=== PATIENT | female | born 1970 | race Caucasian/White ===

== ENCOUNTER 2020-12-21 11:33 | Emergency (ER) | payer BC, SELFPAY ==
[2020-12-21 11:47] VITALS: BP 149/78; PULSE 79; RESP 16; TEMP 37.1; O2SAT 97; BMI 35.7
--- NOTE | 2020-12-21 11:51 | HMH.EDUTC ---
[facility] [place] Disposition Clinical Impression: Bronchitis Sinusitis Qualifiers: Sinusitis location: unspecified location Chronicity: unspecified Qualified Code(s): J32.9 - Chronic sinusitis, unspecified Disposition: Home, Self-Care Condition on Discharge: Good Instructions: Sinusitis, Acute Bronchitis, DI for Sinusitis Additional Instructions: ? Start antibiotic today. Be sure to complete entire prescription even if feeling better ? Monitor temp. Tylenol every 4 hours as needed and / or ibuprofen every 6 hours as needed ( As long as your primary care physician has told you that it ok to take both. For fever/aches/pains ER if no less than 101 despite Tylenol or Motrin ? Humidifier/vaporizer or hot steamy shower ? Inhaler every 4-6 hours as needed like we discussed. If unsure how to use it, ask pharmacist to demonstrate how. Should help open airways and improve cough, wheezing, and shortness of breath ? Mucinex during the day for your cough and cough suppressant only at night. Be sure to drink lots of water. Insurance may not cover a prescriptions for mucinex. Might be cheaper to get 400mg tablets and take 2 tablet in the morning, mid-day and evening with lots of water. Follow up IMMEDIATELY for new or worsening of symptoms OR no noticeable improvement over the next 48-72 hours. 911 immediately for any life threatening symptoms such as chest pain or difficulty breathing Prescriptions: guaiFENesin [Mucinex 600mg tablet] 600 mg PO BID #20 tab.er.12h Transmission Status: [id number] Azithromycin [Z-Xander 250mg Tab] 250 mg PO DIRECTED #6 tab Transmission Status: Pending to [facility]/pharmacy #[id number] Referrals: PCP,No [Primary Care Provider] - As needed Time of Disposition: 11:57 Medical Decision Making - Chuck Inquiry Pt receiving controlled substance: [place] was queried for this patient: No Vital Signs: 12/21/20 11:47 Temperature 98.7 F Temperature Source Oral Pulse Rate [Right] 79 Respiratory Rate 16 Blood Pressure [Right Arm] 149/78 H Blood Pressure Mean [Right Arm] 101 Blood Pressure Source [Right Arm] Automatic Cuff Blood Pressure Position [Right Arm] Sitting 02 Sat by Pulse Oximetry 97 Oxygen Delivery Method Room Air Medical Decision Narrative: Patient state that she has taken azithromycin in the past without reactions or complications [facility] [place] HPI - General Stated complaint: sore throat Time Seen by Provider: 12/21/20 11:52 Mode of Arrival: Ambulatory Source of Information: Patient Limitations: No Limitations Description of Symptoms (Recalled from Triage Doc. by RN): pt is having sinus congestion, with green mucous. she states it has started to move into her chest. she also started having a sore throat this am due to the drainage. HEENT Symptoms (Recalled from RN notes): Yes (nasal congestion with green mucous. sore throat) Resp Symptoms (Recalled from RN notes): Yes (chest congestion) Skin Symptoms (Recalled from RN notes): No MS Symptoms (Recalled from RN notes): No Functional Status (Recalled from RN notes): na - History of Present Illness Provider Complaint: Patient states that she has been having sinus pain and pressure with pain in her teeth, State that she feels like it is trying to move into her chest area States that she is an everyday smoker and has had bronchitis several times in the past State that today she was still having pressure and her mucous had a greenish yellow color so she came in - Related Data Previous Rx's Medication Instructions Recorded Azithromycin [Z-Xander 250mg Tab] 250 mg PO DIRECTED #6 tab 12/21/20 guaiFENesin [Mucinex 600mg tablet] 600 mg PO BID #20 tab.er.12h 12/21/20 Allergies Allergy/AdvReac Type Severity Reaction Status Date / Time Penicillins Allergy Verified 12/21/20 11:53 - Worker's Comp Is this a Worker's Comp case?: No [facility] History - Hepatitis A Screen Drug use history?: No High risk sexual behaviors?: No History of sexuall
[2020-12-21 12:32] VITALS: BP 142/80; PULSE 84; RESP 14; TEMP 36.6
== END 2020-12-21 12:32 | disposition home or self-care (01) ==
PROVIDERS: Emergency Provider Nurse Practitioner
DX: J32.9 Chronic sinusitis, unspecified (principal); F17.210 Nicotine dependence, cigarettes, uncomplicated; Z88.0 Allergy status to penicillin
CPT/HCPCS: 99202; G0463

== ENCOUNTER → 2021-04-17 15:06 | Outpatient (CLI) | payer OTHER, SELFPAY ==
--- NOTE | 2021-04-17 15:11 | CA_ITS ---
APPROVED REPORT EXAM: Comprehensive 2D, Doppler, and color-flow Echocardiogram Paster Hat Lining: Manda Dee RVT Ht: 5 ft 9 in Wt: 250lbs BSA: 2.27 BP: 149/78 mmHg Indications: TACHYCARDIA 2D Dimensions LVOT 1.80 cm (M/F) 1.5-2.5 LA Volume 37.00 mL LA Volume Index 16.29 mL/m2 (M/F) 16-34 M-Mode Dimensions RVDd 2.24 cm (0.9-2.6) LA Diam 3.53 cm (1.9-4.0) LVDd 3.76 cm (3.5-5.7) Ao Diam 2.59 cm (2.0-3.7) LVDs 2.05 cm (3.5-5.7) IVSd 1.06 cm (0.6-1.1) PWd 0.99 cm (0.6-1.1) EF (Teich) 77.50% FS 45.50% EDV (Teich) 60.40 mL TAPSE 1.88 (<1.7) ESV (Teich) 13.60 mL LV Diastology E Decel Time 207.00 (160-240 msec) E/A Ratio 0.9 MED E' 8.10 (< 7 cm/sec) E'/MED E' Ratio 12.47 (>14) LAT E' 12.10 (<10 cm/sec) E/LAT E' Ratio 8.35 (>14) Aortic Valve AO Peak GR. 10.80 mmHg Mitral Valve MV E Max Guzman. 101.00 (40-130 cm/s) MV A Velocity 107.00 (40-130 cm/s) E/A Ratio 0.94 MV Decel. Time 207.00 (160-240 ms) MV PHT 61.00 ms Pulmonary Valve PV Peak Velocity 98.00 (50-150 cm/s) Tricuspid Valve TR P. Velocity 250.00 cm/s RAP Estimate 10.00 mmHg RVSP 35.00 mmHg Left Ventricle Left atrium is normal size, left ventricle is normal size, there is no concentric left ventricular hypertrophy, visually estimated ejection fraction 55% with no regional wall motion abnormality, diastolic parameters are within normal range. Right Ventricle Right atrium and right ventricle are normal size and contractility. Aortic Valve Aortic valve is grossly normal, there is no aortic stenosis or aortic insufficiency. Mitral Valve Mitral valve grossly normal, there is trace mitral regurgitation. Tricuspid Valve Tricuspid grossly normal, there is trace tricuspid regurgitation, tricuspid regurgitation jet velocity is inadequate for calculation of the right ventricular systolic pressure. Pulmonic Valve Pulmonic valve is poorly visualized. Great Vessels Aortic root is normal size. Pericardium No significant pericardial effusion noted. Conclusion 1. Normal left ventricular size, preserved left ventricular systolic function, visually estimated ejection fraction 55% with no regional wall motion abnormality, diastolic parameters are within normal range. 2. Trace mitral and tricuspid regurgitation. 3. No significant pericardial effusion noted. Electronically signed by : Maximilian Prescott, 04/17/2021 21:52:21
== END ==
LOC: RT 15:07
PROVIDERS: PCP Internal Medicine Adolescent Medicine; Visit Provider Internal Medicine Adolescent Medicine
DX: R00.0 Tachycardia, unspecified (principal)
CPT/HCPCS: 93306

== ENCOUNTER → 2021-06-13 08:13 | Outpatient (CLI) | payer OTHER, SELFPAY ==
[2021-06-13 08:40] LABS: Basophils % 0.6 % (0.1-2.0); Eosinophils # 0.1 K/mm3 (0.0-0.4); Eosinophils % 1.6 % (0.1-12.0); Hematocrit 39.5 % (37.0-47.0); Hemoglobin 13.1 g/dL (12.2-16.2); Lymphocytes # 2.6 K/mm3 (0.7-4.5); Lymphocytes % 39.5 % (10-50); Mean Corpuscular HGB Conc 33.1 g/dL (31.8-35.4); Mean Corpuscular Hemoglobin 30.6 pg (27.0-31.2); Mean Corpuscular Volume 92.4 fl (81-99); Mean Platelet Volume 7.9 fl (7.4-10.4); Monocytes # 0.3 K/mm3 (0.1-1.0); Neutrophils # 3.5 K/mm3 (1.8-7.8); Neutrophils % 54.2 % (37.0-80.0); Platelet Count 195 K/mm3 (142-424); Red Blood Count 4.27 M/mm3 (4.20-5.40); White Blood Count 6.5 K/mm3 (4.8-10.8)
[2021-06-13 09:01] LABS: Alanine Aminotransferase 49 U/L (12-78); Albumin Level 4.1 g/dl (3.5-5.0); Albumin/Globulin Ratio 1.7 (1.1-1.8); Alkaline Phosphatase 55 U/L (38-126); Anion Gap 9.5 mEq/L (5-15); Aspartate Amino Transferase 51 U/L (14-36); Bilirubin,Total 0.6 mg/dl (0.2-1.3); Blood Urea Nitrogen 10 mg/dl (7-17); Carbon Dioxide 30 mmol/L (22.0-30.0); Chloride 105 mmol/L (98-107); Estimated Glomerular Filt Rate 89 ml/min (>60); GFR (African American) 108 ML/MIN (>60); Globulin 2.4 g/dL (1.3-3.2); Glucose 219 mg/dl (74-100); Potassium 4.5 mmoL/L (3.5-5.1); Sodium 140 mmol/L (136-145); Total Protein,Serum 6.5 g/dl (6.3-8.2)
[2021-06-13 09:02] LABS: Hemoglobin A1C 6.6 % (4.0-6.0)
[2021-06-13 09:18] LABS: 25-OH Vitamin D, Total 28.7 ng/mL (30-100)
[2021-06-13 09:32] LABS: Thyroid Stimulating Hormone 0.77 uIU/mL (0.465-4.68)
[2021-06-13 09:50] LABS: Vitamin B12 468 pg/mL (239-931)
[2021-06-14 08:21] LABS: CEA 5.8 ng/mL (0.0-4.7)
== END ==
LOC: LAB 08:14
PROVIDERS: Visit Provider Internal Medicine Adolescent Medicine
DX: E11.9 Type 2 diabetes mellitus without complications (principal); E03.9 Hypothyroidism, unspecified; E55.9 Vitamin D deficiency, unspecified; E53.8 Deficiency of other specified B group vitamins; Z85.42 Personal history of malignant neoplasm of other parts of uterus
CPT/HCPCS: 36415; 80053; 82306; 82378; 82607; 83036; 84443; 85025

== ENCOUNTER 2021-06-14 09:07 | Emergency (ER) | payer OTHER, SELFPAY ==
--- NOTE | 2021-06-14 09:38 | HMH.EDUTC ---
[facility] [place] Disposition Clinical Impression: Bronchitis Sinusitis Qualifiers: Sinusitis location: unspecified location Chronicity: acute Recurrence: non-recurrent Qualified Code(s): J01.90 - Acute sinusitis, unspecified Disposition: Home, Self-Care Condition on Discharge: Good Instructions: DI for Sinusitis, DI for Acute Bronchitis Additional Instructions: Drink plenty of fluids. Take tylenol or ibuprofen for pain or fever. Take the medications as directed. Follow up with your regular doctor. GO TO THE ER FOR ANY WORSENING SYMPTOMS Quarantine until you know the results of your covid-19 test. If it is positive, the health department should call you and give you further instructions about your length of Quarantine and other thing. The cough medication (promethazine dm) will make you drowsy, so don't drive or operate heavy machinery after taking it. Prescriptions: Albuterol Sulfate [Albuterol Sulfate Hfa] 2 puffs IH Q6HP PRN 30 Days #1 hfa.aer.ad PRN Reason: Shortness Of Breath Transmission Status: Received by [id number] Promethazine/Dextromethorphan [Promethazine-Dm Syrup] 5 ml PO Q6HP PRN #240 syrup PRN Reason: Cough Transmission Status: Received by [id number] methylPREDNISolone [Medrol] 4 mg PO DIRECTED 6 Days #21 tab.ds.pk Transmission Status: Received by [id number] Azithromycin [Z-Xander 250mg Tab*] 250 mg PO UD DOSE PK #6 tab Transmission Status: Received by [id number] Referrals: Mayank Choe MD [Primary Care Provider] - Forms: Work/School Release Time of Disposition: 10:30 Medical Decision Making - Medical Records Medical records reviewed: No: I reviewed the patient's medical records. - Chuck Inquiry Pt receiving controlled substance: No Vital Signs: 06/14/21 09:43 06/14/21 10:28 Temperature 98.3 F 98.3 F Temperature Source Oral Pulse Rate 92 H Pulse Rate [Left] 98 H Respiratory Rate 16 18 Blood Pressure 133/76 Blood Pressure [Right Arm] 131/80 Blood Pressure Mean [Right Arm] 97 02 Sat by Pulse Oximetry 98 - Lab Data Lab results reviewed: Yes: I reviewed the patient's lab results. Lab Results 06/14/21 09:26: SARS-CoV-2 (PCR) Not detected, Influenza A Untype (PCR) Not detected, Influenza Type B (PCR) Not detected 06/14/21 09:49: Strep Scn Rapid Clinic Negative Orders (Tests/Meds): ORDERS Category Date Time Status Strep Screen Confirmation Stat Micro 06/14/21 09:49 Received [facility] [place] HPI - General Stated complaint: sore throat, cough, head ac, mahesh Time Seen by Provider: 06/14/21 09:38 - History of Present Illness Provider Complaint: She c/o sore throat, sinus congestion, and a cough for the past 3 days. - Related Data Previous Rx's Medication Instructions Recorded Azithromycin [Z-Xander 250mg Tab] 250 mg PO DIRECTED #6 tab 12/21/20 guaiFENesin [Mucinex 600mg tablet] 600 mg PO BID #20 tab.er.12h 12/21/20 Albuterol Sulfate [Albuterol 2 puffs IH Q6HP PRN 30 Days #1 06/14/21 Sulfate Hfa] hfa.aer.ad Azithromycin [Z-Xander 250mg Tab*] 250 mg PO UD DOSE PK #6 tab 06/14/21 Promethazine/Dextromethorphan 5 ml PO Q6HP PRN #240 syrup 06/14/21 [Promethazine-Dm Syrup] methylPREDNISolone [Medrol] 4 mg PO DIRECTED 6 Days #21 06/14/21 tab.ds.pk Allergies Allergy/AdvReac Type Severity Reaction Status Date / Time Penicillins Allergy Verified 12/21/20 11:53 [facility] [place] History - Hepatitis A Screen Attestation statement:: This patient has been screened for Hepatitis A risk factors. I have reviewed the patient's past medical history: Yes - Social History Smoking Status: Current every day smoker Tobacco Type: cigarettes # Packs/Day (cigarettes): 1 Alcohol Intake: never Occupational Status: employed ROS Obtained: Yes All systems reviewed & no additional complaints - Constitutional Constitutional: Reports as per HPI, Reports fever(s), Reports poor appetite, Reports malaise - Eyes Eyes: Denies blurr
[2021-06-14 09:43] VITALS: BP 131/80; PULSE 98; RESP 16; TEMP 36.8; O2SAT 98; BMI 37.2
[2021-06-14 09:52] LABS: UTC Strep Screen (Rapid) Negative (Negative)
[2021-06-14 10:02] LABS: Coronavirus 19, PCR Not Detected (NotDetected); Influenza A, PCR Not Detected (NotDetected); Influenza B, PCR Not Detected (NotDetected)
[2021-06-14 10:28] VITALS: BP 133/76; PULSE 92; RESP 18; TEMP 36.8
== END 2021-06-14 10:50 | disposition home or self-care (01) ==
PROVIDERS: Emergency Provider Nurse Practitioner Family; PCP Internal Medicine Adolescent Medicine
DX: J20.9 Acute bronchitis, unspecified (principal); J01.90 Acute sinusitis, unspecified; Z20.822 Contact with and (suspected) exposure to COVID-19; F17.210 Nicotine dependence, cigarettes, uncomplicated; Z88.0 Allergy status to penicillin
CPT/HCPCS: 87880; 99203; G0463; U0003

== ENCOUNTER 2021-10-20 09:06 | Emergency (ER) | payer OTHER, SELFPAY ==
--- NOTE | 2021-10-20 09:20 | HMH.EDUTC ---
[facility] [place] Impression: Low back pain Qualifiers: Chronicity: acute Back pain laterality: bilateral Sciatica presence: without sciatica Qualified Code(s): M54.50 - Low back pain, unspecified Disposition: Home, Self-Care Condition on Discharge: Good Instructions: Low Back Pain, DI for Low Back Pain Additional Instructions: Go home and rest. It would be best if you rested tomorrow too. No heavy lifting. No twisting. Take the medications as directed. The muscle relaxer (cyclobenzaprine--Flexeril) will make you drowsy, so don't drive or operate heavy machinery after taking it. Try the ibuprofen first for a couple of days. If it is not working then start the steroids. They will cause your blood sugars to go up, so make sure you follow your diabetic diet closely while you are on them. Follow up with your regular doctor. GO TO THE ER FOR ANY WORSENING SYMPTOMS OR CONCERN, ESPECIALLY BOWEL OR BLADDER ISSUES, SADDLE AREA NUMBNESS, FEVER, ETC Prescriptions: Ibuprofen [Ibuprofen 600mg Tablet] 600 mg PO Q6HP PRN #30 tab PRN Reason: Mild Pain Transmission Status: [id number] Cyclobenzaprine HCl [Cyclobenzaprine 10mg Tab] 10 mg PO BIDP PRN #20 tab PRN Reason: Muscle Spasm Transmission Status: [id number] methylPREDNISolone [Medrol] 4 mg PO DIRECTED 6 Days #21 packet Transmission Status: [id number] Referrals: Mayank Choe MD [Primary Care Provider] - Time of Disposition: 09:54 Medical Decision Making - Medical Records Medical records reviewed: No: I reviewed the patient's medical records. - Chuck Inquiry Pt receiving controlled substance: No Vital Signs: 10/20/21 09:31 Temperature 98.2 F Temperature Source Oral Pulse Rate [Left] 82 Respiratory Rate 18 Blood Pressure [Right Arm] 125/80 Blood Pressure Mean [Right Arm] 95 02 Sat by Pulse Oximetry 97 Orders (Tests/Meds): ED MEDICATIONS Discontinued Medications Generic Name Dose Route Start Last Admin Trade Name Freq PRN Reason Stop Dose Admin Ketorolac Tromethamine 60 mg 10/20/21 09:36 Ketorolac 60mg/2ml Vial IM 10/20/21 09:37 ONCE [place] [facility] [place] - General Stated complaint: a/o 10/20 lower back pain Time Seen by Provider: 10/20/21 09:20 - History of Present Illness Provider Complaint: She c/o low back pain since last night. She has a history of low back issues and degenerative disk disease. She usually manages it well and watches how she lifts and bends and doesn't have a lot of trouble out of it. But, last night her mother's oxygen concentrator went out and she had to hurry to carry in some oxygen tanks. So, after lifting the oxygen tanks she began having low back pain. The pain radiates around both her hips. It does not radiate farther down each leg. She denies any numbness or tingling of either of her legs or feet. She denies any saddle area numbness. She denies any urinary or bowel complaints of issues. - Related Data Previous Rx's Medication Instructions Recorded Azithromycin [Z-Xander 250mg Tab] 250 mg PO DIRECTED #6 tab 12/21/20 guaiFENesin [Mucinex 600mg tablet] 600 mg PO BID #20 tab.er.12h 12/21/20 Albuterol Sulfate [Albuterol 2 puffs IH Q6HP PRN 30 Days #1 06/14/21 Sulfate Hfa] hfa.aer.ad Azithromycin [Z-Xander 250mg Tab*] 250 mg PO UD DOSE PK #6 tab 06/14/21 Promethazine/Dextromethorphan 5 ml PO Q6HP PRN #240 syrup 06/14/21 [Promethazine-Dm Syrup] methylPREDNISolone [Medrol] 4 mg PO DIRECTED 6 Days #21 06/14/21 tab.ds.pk Cyclobenzaprine HCl 10 mg PO BIDP PRN #20 tab 10/20/21 [Cyclobenzaprine 10mg Tab] Ibuprofen [Ibuprofen 600mg 600 mg PO Q6HP PRN #30 tab 10/20/21 Tablet] methylPREDNISolone [Medrol] 4 mg PO DIRECTED 6 Days #21 10/20/21 packet Allergies Allergy/AdvReac Type Severity Reaction Status Date / Time Penicillins Allergy Verified 12/21/20 11:53 [facility] History - Hepatitis A Screen
[2021-10-20 09:31] VITALS: BP 125/80; PULSE 82; RESP 18; TEMP 36.8; O2SAT 97; BMI 37.6
[2021-10-20 09:51] VITALS: BP 125/80; PULSE 82; RESP 18; TEMP 36.8
== END 2021-10-20 10:01 | disposition home or self-care (01) ==
PROVIDERS: Emergency Provider Nurse Practitioner Family; PCP Internal Medicine Adolescent Medicine
DX: M54.50 Low back pain, unspecified (principal); F17.210 Nicotine dependence, cigarettes, uncomplicated; Z88.0 Allergy status to penicillin
CPT/HCPCS: 96372; 99202; G0463

== ENCOUNTER → 2021-11-29 08:24 | Outpatient (CLI) | payer OTHER, SELFPAY ==
[2021-11-30 09:33] LABS: Covid-19 Nasal PCR Sendout Lex NOT DETECTED
== END ==
PROVIDERS: PCP Internal Medicine Adolescent Medicine; Visit Provider Nurse Practitioner
DX: Z20.822 Contact with and (suspected) exposure to COVID-19 (principal)
CPT/HCPCS: C9803; U0004; U0005

== ENCOUNTER → 2021-12-25 11:32 | Outpatient (CLI) | payer OTHER, SELFPAY ==
--- NOTE | 2021-12-25 11:36 | XR_ITS ---
FINAL REPORT CLINICAL HISTORY: Rt foot pain for 3 months Nki FINDINGS: RIGHT FOOT: Three weight-bearing views of the right foot were obtained. There is no acute fracture or dislocation. There are mild degenerative changes. There are small calcaneal spurs. There is no soft tissue abnormality. IMPRESSION: No acute bony abnormality. Mild degenerative changes. Reviewed, Interpreted and Dictated by Alberto Chong III, MD Transcribed by NOLAN Lockwood Authenticated by Alberto Chong III, MD on 12/25/2021 01:13:09 PM [facility]
--- NOTE | 2021-12-25 11:36 | XR_ITS ---
FINAL REPORT CLINICAL HISTORY: Comparison FINDINGS: LEFT FOOT: Three weight-bearing views of the left foot were obtained. There is no acute fracture or dislocation. There are mild degenerative changes of the great toe. There is mild hallux valgus deformity. There are mild degenerative changes elsewhere. There are small calcaneal spurs. There is no soft tissue abnormality. IMPRESSION: Mild degenerative changes. There is no acute osseous abnormality. Reviewed, Interpreted and Dictated by Alberto Chong III, MD Transcribed by NOLAN Lockwood Authenticated by Alberto Chong III, MD on 12/25/2021 01:13:11 PM [facility]
== END ==
PROVIDERS: PCP Internal Medicine Adolescent Medicine; Visit Provider Podiatrist
DX: M79.671 Pain in right foot (principal); M79.672 Pain in left foot
CPT/HCPCS: 73630

== ENCOUNTER → 2022-04-13 09:31 | Outpatient (CLI) | payer OTHER, SELFPAY ==
--- NOTE | 2022-04-13 09:45 | FL_ITS ---
FINAL REPORT CLINICAL HISTORY: Upper quad pain, constipation, nausea FINDINGS: AIR CONTRAST UPPER GI AND SMALL BOWEL FOLLOW THROUGH HISTORY: Gastroparesis, upper quadrant abdominal pain, nausea, constipation. TECHNIQUE: Patient ingested thick and thin barium contrast. Effervescent crystals were also administered. Additional barium contrast was administered for small bowel follow-through. Spot and overhead films were performed. Total of 61 images were saved. FINDINGS: The esophagus demonstrates no morphologic abnormalities. No mucosal defects are seen. There is very mild esophageal dysmotility.The stomach is of normal size, shape and position. No gastric filling defects are seen. The duodenal bulb and sweep appear unremarkable. No episodes of gastroesophageal reflux observed.13 mm barium tablet passes easily through the esophagus and into the stomach. SBFT: The senior net application developer film is unremarkable . The transit time to the colon is normal . Contrast reaches the colon in 30 minutes. The mucosal fold pattern is normal . Spot images of the terminal ileum are unremarkable . FLUOROSCOPY TIME: 2 minutes 53 seconds IMPRESSION: Mild esophageal dysmotility. Otherwise, unremarkable upper GI and small bowel follow-through. Reviewed, Interpreted and Dictated by Alberto Chong III, MD Transcribed by Radha Soto PA-C Authenticated and [facility]
== END ==
LOC: RAD 09:31
PROVIDERS: PCP Internal Medicine Adolescent Medicine; Visit Provider Internal Medicine Adolescent Medicine
DX: R10.11 Right upper quadrant pain (principal); R10.12 Left upper quadrant pain
CPT/HCPCS: 74246; 74248

== ENCOUNTER → 2022-06-11 06:22 | Outpatient (CLI) | payer OTHER, SELFPAY ==
[2022-06-11 20:56] LABS: Adenovirus,PCR Not Detected (NotDetected); Bordetella Pertussis Not Detected (NotDetected); Chlamydophila Pneumoniae, PCR Not Detected (NotDetected); Coronavirus 19, PCR Not Detected (NotDetected); Coronavirus 229E Not Detected (NotDetected); Coronavirus NL63 Not Detected (NotDetected); Coronavirus OC43 Not Detected (NotDetected); Coronovirus HKU1,PCR Not Detected (NotDetected); Human Metapneumovirus Not Detected (NotDetected); Influenza A, PCR Not Detected (NotDetected); Influenza AH1, 2009 Not Detected (NotDetected); Influenza AH1, PCR Not Detected (NotDetected); Influenza AH3,PCR Not Detected (NotDetected); Influenza B, PCR Not Detected (NotDetected); Mycoplasma Pneumoniae, PCR Not Detected (NotDetected); Parainfluenza 1, PCR Not Detected (NotDetected); Parainfluenza 2, PCR Not Detected (NotDetected); Parainfluenza 3, PCR Not Detected (NotDetected); Parainfluenza 4, PCR Not Detected (NotDetected); Respiratory Syncytial Virus Not Detected (NotDetected); Rhinovirus/Enterovirus Not Detected (NotDetected)
[2022-06-11 21:17] LABS: Basophils # 0.1 K/mm3 (0-0.2); Basophils % 1.2 % (0.1-2.0); Eosinophils # 0.1 K/mm3 (0.0-0.4); Eosinophils % 2.1 % (0.1-12.0); Hematocrit 48.8 % (37.0-47.0); Hemoglobin 14.7 g/dL (12.2-16.2); Lymphocytes # 1.7 K/mm3 (0.7-4.5); Lymphocytes % 27.9 % (10-50); Mean Corpuscular HGB Conc 30.2 g/dL (31.8-35.4); Mean Corpuscular Hemoglobin 30.8 pg (27.0-31.2); Mean Corpuscular Volume 101.9 fl (81-99); Mean Platelet Volume 10.3 fl (7.4-10.4); Monocytes # 0.2 K/mm3 (0.1-1.0); Monocytes % 3.9 % (1.7-9.3); Neutrophils % 64.9 % (37.0-80.0); Platelet Count 257 K/mm3 (142-424); Red Blood Count 4.79 M/mm3 (4.20-5.40); Red Cell Distribution Width 13.8 % (11.5-17.5); White Blood Count 6.1 K/mm3 (4.8-10.8)
== END ==
LOC: LAB.DROPOF 06-12 06:22
PROVIDERS: PCP Nurse Practitioner; Visit Provider Nurse Practitioner
DX: Z20.822 Contact with and (suspected) exposure to COVID-19 (principal); J32.9 Chronic sinusitis, unspecified; J40 Bronchitis, not specified as acute or chronic
CPT/HCPCS: 85025; 87581; 87632; 87798; C9803; U0003; U0005

== ENCOUNTER 2022-07-22 12:42 | Emergency (ER) | payer OTHER, SELFPAY ==
[2022-07-22 13:20] VITALS: BP 134/88; PULSE 94; RESP 22; TEMP 36.9; O2SAT 96; BMI 37.6
--- NOTE | 2022-07-22 13:21 | EXP.UTC ---
Discharge Plan Disposition Patient Disposition: Home, Self-Care Condition: Good Prescriptions Prescriptions: New promethazine-DM 6.25-15 mg/5 mL Syrup 5 ml PO Q6H PRN (Reason: Cough) Qty: 240 0RF benzonatate [benzonatate] 100 mg capsule 100 mg PO TIDP PRN (Reason: Cough) Qty: 30 0RF ondansetron 4 mg Tablet,Disintegrating 4 mg PO Q8H PRN (Reason: Nausea) Qty: 20 0RF azithromycin [Zithromax] 250 mg tablet 250 mg PO UD DOSE PK Qty: 6 0RF Rx Instructions: Take two (2) tablets today, then one (1) tablet days #2 thru #5 No Action levothyroxine 125 mcg tablet 125 mcg PO DAILY metoclopramide HCl 10 mg tablet 10 mg PO QID Label Comments: TAKE 1 TABLET BY MOUTH 4 TIMES A DAY (BEFORE MEALS AND AT BEDTIME) atorvastatin 10 mg tablet 10 mg PO Label Comments: TAKE 1 TABLET BY MOUTH EVERY DAY FOR 30 DAYS cyanocobalamin (vitamin B-12) 1,000 mcg/mL solution 1,000 mcg SQ QMONTH diazepam 5 mg tablet 5 mg PO DAILY PRN (Reason: anxiety) escitalopram oxalate 20 mg tablet 20 mg PO DAILY gabapentin 600 mg tablet 600 mg PO HS Label Comments: TAKE ONE CAPSULE BY MOUTH AT BEDTIME FOR 30 DAYS metoprolol succinate 25 mg tablet extended release 24 hr 25 mg PO DAILY oxybutynin chloride 5 mg tablet 5 mg PO DAILY Levemir FlexTouch U-100 Insuln 100 unit/mL (3 mL) insulin pen See Rx Instructions SQ .COMPLEX Rx Instructions: 35 units qAM, 25 units qPM SQ; insulin aspart U-100 [Novolog Flexpen U-100 Insulin] 100 unit/mL (3 mL) insulin pen See Rx Instructions SQ .COMPLEX Rx Instructions: per patient's sliding scale SQ; levocetirizine 5 mg tablet 5 mg PO DAILY cefdinir 300 mg capsule 300 mg PO BID 10 Days Qty: 20 0RF mupirocin 2 % ointment 1 applic TP TID Qty: 15 0RF promethazine-DM 6.25-15 mg/5 mL syrup 5 ml PO Q4-6H PRN (Reason: cough) Qty: 240 0RF benzonatate 200 mg capsule 200 mg PO TID PRN (Reason: cough) Qty: 30 0RF albuterol sulfate 8.5 GM HFA aerosol inhaler 2 puffs IH Q6HP PRN (Reason: Shortness Of Breath) 30 Days Qty: 1 5RF Referrals Follow up/Referrals: Mayank Choe MD [Primary Care Provider] - See instructions Activity Restrictions/Add. Instructions Additional Instructions/Restrictions: Drink plenty of fluids. Take tylenol or ibuprofen for pain or fever. Take the medications as directed. Follow up with your regular doctor. GO TO THE ER FOR ANY WORSENING SYMPTOMS Quarantine until you know the results of your covid-19 test. Notify your school or workplace of your results and follow their instructions regarding return to work/school. Clinical Impressions Clinical Impression: Acute viral syndrome, Exposure to 2019 novel coronavirus Instructions Patient Instructions: Ondansetron, Benzonatate, Coronavirus Disease 2019, Preventing the Spread of Coronavirus Discharge Instructions Discharge ED Provider[place] Jose [place]cia [facility] [place] General Stated complaint: cough,congestion,body aches,fever Time Seen by Provider: 07/22/22 13:21 Related Data Home Medications Medication Instructions Recorded Confirmed atorvastatin 10 mg tablet 10 mg PO 06/11/22 06/11/22 cyanocobalamin (vitamin B-12) 1,000 mcg SQ QMONTH 06/11/22 06/11/22 1,000 mcg/mL injection solution diazepam 5 mg tablet 5 mg PO DAILY PRN anxiety 06/11/22 06/11/22 escitalopram oxalate 20 mg tablet 20 mg PO DAILY 06/11/22 06/11/22 gabapentin 600 mg tablet 600 mg PO HS 06/11/22 06/11/22 insulin aspart U-100 100 unit/mL See Rx Instructions SQ .COMPLEX 06/11/22 06/11/22 (3 mL) subcutaneous pen (Novolog Flexpen U-100 Insulin aspart) insulin detemir U-100 100 unit/mL See Rx Instructions SQ .COMPLEX 06/11/22 06/11/22 (3 mL) subcutaneous pen (Levemir FlexTouch U-100 Insulin) levocetirizine 5 mg tablet 5 mg PO DAILY 06/11/22 06/11/22 levothyroxine 125 mcg tablet 125 mcg PO DAILY 06/11/22
[2022-07-22 14:08] VITALS: BP 134/88; PULSE 94; RESP 22; TEMP 36.9; O2SAT 96
[2022-07-22 14:10] LABS: UTC Strep Screen (Rapid) Negative (Negative)
== END 2022-07-22 14:13 | disposition home or self-care (01) ==
PROVIDERS: Emergency Provider Nurse Practitioner Family; PCP Internal Medicine Adolescent Medicine
DX: U07.1 COVID-19 (principal)
CPT/HCPCS: 87880; 99212; C9803; G0463; U0003; U0005

== ENCOUNTER → 2022-12-07 09:17 | Outpatient (CLI) | payer OTHER, SELFPAY ==
--- NOTE | 2022-12-07 09:22 | XR_ITS ---
FINAL REPORT CLINICAL HISTORY: elbow pain FINDINGS: Right elbow Three views were obtained. There is no acute fracture or dislocation. There are moderate hypertrophic changes at the medial joint margin. Osteophyte is seen arising from the coronoid process. No soft tissue abnormality is identified. IMPRESSION: Degenerative changes as above. Reviewed, Interpreted and Dictated by Moy Lopez MD Transcribed by Angelia Pool Authenticated and [facility]
== END ==
PROVIDERS: PCP Internal Medicine Adolescent Medicine; Visit Provider Orthopaedic Surgery
DX: M25.521 Pain in right elbow (principal)
CPT/HCPCS: 73080

== ENCOUNTER → 2022-12-10 23:25 | Outpatient (CLI) | payer OTHER, SELFPAY ==
[2022-12-10 18:34] LABS: Adenovirus,PCR Not Detected (NotDetected); Bordetella Pertussis Not Detected (NotDetected); Chlamydophila Pneumoniae, PCR Not Detected (NotDetected); Coronavirus 19, PCR Not Detected (NotDetected); Coronavirus 229E Not Detected (NotDetected); Coronavirus NL63 Not Detected (NotDetected); Coronavirus OC43 Not Detected (NotDetected); Coronovirus HKU1,PCR Not Detected (NotDetected); Human Metapneumovirus Not Detected (NotDetected); Influenza A, PCR Not Detected (NotDetected); Influenza AH1, 2009 Not Detected (NotDetected); Influenza AH1, PCR Not Detected (NotDetected); Influenza AH3,PCR Not Detected (NotDetected); Influenza B, PCR Not Detected (NotDetected); Mycoplasma Pneumoniae, PCR Not Detected (NotDetected); Parainfluenza 1, PCR Not Detected (NotDetected); Parainfluenza 2, PCR Not Detected (NotDetected); Parainfluenza 3, PCR Not Detected (NotDetected); Parainfluenza 4, PCR Not Detected (NotDetected); Respiratory Syncytial Virus Not Detected (NotDetected); Rhinovirus/Enterovirus Not Detected (NotDetected)
== END ==
PROVIDERS: PCP Nurse Practitioner; Visit Provider Nurse Practitioner
DX: J98.9 Respiratory disorder, unspecified (principal); R50.9 Fever, unspecified
CPT/HCPCS: 87581; 87632; 87798; C9803; U0003; U0005

== ENCOUNTER 2022-12-20 15:00 | Outpatient (RCR) | payer OTHER, SELFPAY ==
--- NOTE | 2022-12-03 16:13 | HMH.OTOPEV ---
OT Inpatient Evaluation Rehab OT Outpatient Eval Start: 12/03/22 15:42 Freq: Status: Active Protocol: Document 12/03/22 15:42 RMAJITH (Rec: 12/03/22 16:13 RMARSHALL [id number]) E-signed By Sean Vang, OT Outpatient Therapy Subjective History Subjective History Pt is seen this date (12/03/22) for skilled OT inital evaulation due to R shoulder and R elbow pain. Pt reports that she does not recall an injury that occurred that caused pain in R elbow. Pt reports that the R elbow pain began ~ 3-4 weeks ago, and has since hindered her occupational performance at work. She reports lateral epicondylitis in R elbow. Pt reports that she has been using Voltaren gel x4 a day to help with pain in R elbow. She reports that R shoulder pain began ~ 1 week ago, due to compensating for R elbow pain. 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 She reports pain while completing work duties. Pt is R hand dominant. 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
== END 2022-12-20 15:05 | disposition home or self-care (01) ==
LOC: OT 15:00
PROVIDERS: Visit Provider Internal Medicine Adolescent Medicine
DX: M25.511 Pain in right shoulder (principal); M25.521 Pain in right elbow
CPT/HCPCS: 97010; 97014; 97035; 97110; 97140; 97166; 97530; G0283

== ENCOUNTER 2023-02-01 11:47 | Emergency (ER) | payer OTHER, SELFPAY ==
[2023-02-01 12:00] VITALS: BP 144/72; PULSE 80; RESP 16; TEMP 36.8; O2SAT 98; BMI 36.9
--- NOTE | 2023-02-01 12:08 | EXP.UTC ---
Discharge Plan Disposition Patient Disposition: Home, Self-Care Condition: Good Prescriptions Prescriptions: New benzonatate 100 mg capsule 100 mg PO TID PRN (Reason: cough) Qty: 30 1RF No Action levothyroxine 125 mcg tablet 125 mcg PO DAILY metoclopramide HCl 10 mg tablet 10 mg PO QID Label Comments: TAKE 1 TABLET BY MOUTH 4 TIMES A DAY (BEFORE MEALS AND AT BEDTIME) atorvastatin 10 mg tablet 10 mg PO Label Comments: TAKE 1 TABLET BY MOUTH EVERY DAY FOR 30 DAYS cyanocobalamin (vitamin B-12) 1,000 mcg/mL solution 1,000 mcg SQ QMONTH diazepam 5 mg tablet 5 mg PO DAILY PRN (Reason: anxiety) escitalopram oxalate 20 mg tablet 20 mg PO DAILY gabapentin 600 mg tablet 600 mg PO HS Label Comments: TAKE ONE CAPSULE BY MOUTH AT BEDTIME FOR 30 DAYS metoprolol succinate 25 mg tablet extended release 24 hr 25 mg PO DAILY oxybutynin chloride 5 mg tablet 5 mg PO DAILY Levemir FlexTouch U-100 Insuln 100 unit/mL (3 mL) insulin pen See Rx Instructions SQ .COMPLEX Rx Instructions: 35 units qAM, 25 units qPM SQ; insulin aspart U-100 [Novolog FlexPen U-100 Insulin] 100 unit/mL (3 mL) insulin pen See Rx Instructions SQ .COMPLEX Rx Instructions: per patient's sliding scale SQ; levocetirizine 5 mg tablet 5 mg PO DAILY cefdinir 300 mg capsule 300 mg PO BID 10 Days Qty: 20 0RF mupirocin 2 % ointment 1 applic TP TID Qty: 15 0RF promethazine-DM 6.25-15 mg/5 mL syrup 5 ml PO Q4-6H PRN (Reason: cough) Qty: 240 0RF benzonatate 200 mg capsule 200 mg PO TID PRN (Reason: cough) Qty: 30 0RF albuterol sulfate 8.5 GM HFA aerosol inhaler 2 puffs IH Q6HP PRN (Reason: Shortness Of Breath) 30 Days Qty: 1 5RF promethazine-DM 6.25-15 mg/5 mL Syrup 5 ml PO Q6H PRN (Reason: Cough) Qty: 240 0RF benzonatate [benzonatate] 100 mg capsule 100 mg PO TIDP PRN (Reason: Cough) Qty: 30 0RF ondansetron 4 mg Tablet,Disintegrating 4 mg PO Q8H PRN (Reason: Nausea) Qty: 20 0RF azithromycin [Zithromax] 250 mg tablet 250 mg PO UD DOSE PK Qty: 6 0RF Rx Instructions: Take two (2) tablets today, then one (1) tablet days #2 thru #5 Referrals Follow up/Referrals: Mayank Choe MD [Primary Care Provider] - See instructions Activity Restrictions/Add. Instructions Additional Instructions/Restrictions: Do not take Tessalon Perles with Promethazine DM. Switch your allergy medication for the next 3 moths. Clinical Impressions Clinical Impression: Acute upper respiratory infection Instructions Patient Instructions: DI for Viral Upper Respiratory Infection -- Adult Discharge ED Provider: Mariya Carrillo [facility] General Stated complaint: Sore throat, cough Time Seen by Provider: 02/01/23 12:08 Related Data Home Medications Medication Instructions Recorded Confirmed atorvastatin 10 mg tablet 10 mg PO 06/11/22 12/07/22 cyanocobalamin (vitamin B-12) 1,000 mcg SQ QMONTH 06/11/22 12/07/22 1,000 mcg/mL injection solution diazepam 5 mg tablet 5 mg PO DAILY PRN anxiety 06/11/22 12/07/22 escitalopram oxalate 20 mg tablet 20 mg PO DAILY 06/11/22 12/07/22 gabapentin 600 mg tablet 600 mg PO HS 06/11/22 12/07/22 insulin aspart U-100 100 unit/mL See Rx Instructions SQ .COMPLEX 06/11/22 12/07/22 (3 mL) subcutaneous pen (Novolog FlexPen U-100 Insulin aspart) insulin detemir U-100 100 unit/mL See Rx Instructions SQ .COMPLEX 06/11/22 12/07/22 (3 mL) subcutaneous pen (Levemir FlexTouch U-100 Insulin) levocetirizine 5 mg tablet 5 mg PO DAILY 06/11/22 12/07/22 levothyroxine 125 mcg tablet 125 mcg PO DAILY 06/11/22 12/07/22 metoclopramide HCl 10 mg tablet 10 mg PO QID 06/11/22 12/07/22 metoprolol succinate 25 mg 25 mg PO DAILY 06/11/22 12/07/22 tablet,extended release 24 hr oxybutynin chloride 5 mg tablet 5 mg PO DAILY 06/11/22 12/07/22 Previous Rx's Medication Instructions Record
[2023-02-01 12:14] VITALS: BP 144/72; PULSE 80; RESP 16; TEMP 36.8; O2SAT 98
[2023-02-01 12:14] LABS: UTC Strep Screen (Rapid) Negative (Negative)
== END 2023-02-01 12:27 | disposition home or self-care (01) ==
PROVIDERS: Emergency Provider Nurse Practitioner Family; PCP Internal Medicine Adolescent Medicine
DX: J06.9 Acute upper respiratory infection, unspecified (principal); E11.9 Type 2 diabetes mellitus without complications; Z79.4 Long term (current) use of insulin; E78.5 Hyperlipidemia, unspecified; E03.9 Hypothyroidism, unspecified
CPT/HCPCS: 87880; 99212; 99214; G0463

== ENCOUNTER → 2023-03-20 14:42 | Outpatient (CLI) | payer OTHER, SELFPAY ==
[2023-03-20 17:11] LABS: Blood Urea Nitrogen 12 mg/dl (7-17); Estimated Glomerular Filt Rate 66 ml/min (>60); GFR (African American) 80 ML/MIN (>60)
== END ==
PROVIDERS: PCP Internal Medicine Adolescent Medicine; Visit Provider Internal Medicine Adolescent Medicine
DX: Z01.812 Encounter for preprocedural laboratory examination (principal)
CPT/HCPCS: 36415; 82565; 84520

== ENCOUNTER → 2023-03-21 08:23 | Outpatient (CLI) | payer OTHER, SELFPAY ==
--- NOTE | 2023-03-21 08:27 | CT_ITS ---
FINAL REPORT TECHNIQUE: After the administration of oral and intravenous contrast, axial images were obtained through the abdomen and pelvis by computed tomography. The study was performed with techniques to keep radiation dose as low as reasonably achievable, (ALARA). Individual dose reduction techniques using automated exposure control or adjustment of mA and/or kV according to the patient's size were employed. CLINICAL HISTORY: H/O UTERINE CANCER FINDINGS: Abdomen: The lung bases are clear. The liver is normal in size and attenuation. There is a gallstone in the gallbladder with mild gallbladder wall thickening, cholecystitis is not excluded. There is no biliary ductal dilatation. The spleen is unremarkable. The adrenals are normal. The pancreas is unremarkable. The kidneys enhance appropriately. The aorta is normal in caliber. There is no free fluid. There is a 25 mm portacaval node which has a nonspecific appearance, favor reactive over neoplastic. Pelvis: The appendix is normal. The patient is status post hysterectomy. The urinary bladder is unremarkable. There is no free fluid or adenopathy. IMPRESSION: Gallstone with mild gallbladder wall thickening, cholecystitis is not excluded. Portacaval node with a nonspecific appearance, favor reactive over neoplastic. Follow-up CT may be helpful. Reviewed, Interpreted and Dictated by Alberto Chong III, MD Transcribed by Angelia Pool Authenticated and [facility]
--- NOTE | 2023-03-21 08:36 | CT_ITS ---
FINAL REPORT TECHNIQUE: Axial images were obtained from the lung apex to the mid abdomen by computed tomography. This study was performed with techniques to keep radiation doses as low as reasonably achievable (ALARA). Individualized dose reduction techniques using automated exposure control or adjustment of mA and/or kV according to the patient's size were employed. CLINICAL HISTORY: LUNG SCREENING CURRENT SMOKER 1PPD X25 YEARS FINDINGS: CHEST CT LOW DOSE CTDI vol (mGy): 2.90 DLP (mGy-cm): 100.03 There is no axillary adenopathy. There is no hilar or mediastinal adenopathy. The heart is normal in size. There is no pericardial or pleural effusion. There is a 4 mm nodule in the lateral right upper lobe well seen on image 28. There are several less than 5 mm nodules in the lateral left upper lobe. IMPRESSION: Bilateral pulmonary nodules. Lung RADS category 2. Recommend 12 month follow-up low-dose chest CT. Reviewed, Interpreted and Dictated by Alberto Chong III, MD Transcribed by Angelia Pool Authenticated and [facility]
== END ==
LOC: RAD 08:24
PROVIDERS: PCP Internal Medicine Adolescent Medicine; Visit Provider Internal Medicine Adolescent Medicine
DX: Z85.42 Personal history of malignant neoplasm of other parts of uterus (principal); Z87.891 Personal history of nicotine dependence; Z12.2 Encounter for screening for malignant neoplasm of respiratory organs
CPT/HCPCS: 71271; 74177; Q9967

== ENCOUNTER → 2023-03-22 08:08 | Outpatient (CLI) | payer OTHER, SELFPAY ==
[2023-03-22 09:58] LABS: Basophils % 0.4 % (0.1-2.0); Eosinophils # 0.1 K/mm3 (0.0-0.4); Eosinophils % 1.6 % (0.1-12.0); Hematocrit 42.5 % (37.0-47.0); Hemoglobin 13.7 g/dL (12.2-16.2); Lymphocytes # 1.7 K/mm3 (0.7-4.5); Lymphocytes % 28.3 % (10-50); Mean Corpuscular HGB Conc 32.3 g/dL (31.8-35.4); Mean Corpuscular Hemoglobin 30.8 pg (27.0-31.2); Mean Corpuscular Volume 95.6 fl (81-99); Mean Platelet Volume 8.4 fl (7.4-10.4); Monocytes # 0.3 K/mm3 (0.1-1.0); Monocytes % 4.5 % (1.7-9.3); Neutrophils % 65.2 % (37.0-80.0); Platelet Count 227 K/mm3 (142-424); Red Blood Count 4.44 M/mm3 (4.20-5.40); Red Cell Distribution Width 13.6 % (11.5-17.5); White Blood Count 6.2 K/mm3 (4.8-10.8)
[2023-03-22 10:27] LABS: Alanine Aminotransferase 28 U/L (12-78); Albumin/Globulin Ratio 1.6 (1.1-1.8); Alkaline Phosphatase 64 U/L (38-126); Anion Gap 15.4 mEq/L (5-15); Aspartate Amino Transferase 29 U/L (14-36); Bilirubin,Total 0.7 mg/dl (0.2-1.3); Blood Urea Nitrogen 10 mg/dl (7-17); Calcium 8.8 mg/dl (8.4-10.2); Carbon Dioxide 28 mmol/L (22.0-30.0); Chloride 101 mmol/L (98-107); Chol/HDL Ratio 4.3 (1-3.5); Cholesterol 149 mg/dl (140-200); Estimated Glomerular Filt Rate 76 ml/min (>60); GFR (African American) 92 ML/MIN (>60); Globulin 2.5 g/dL (1.3-3.2); Glucose 164 mg/dl (74-100); HDL Cholesterol 35 mg/dl (40-60); Potassium 4.4 mmoL/L (3.5-5.1); Sodium 140 mmol/L (136-145); Total Protein,Serum 6.5 g/dl (6.3-8.2); Triglycerides 208 mg/dl (30-150); VLDL Cholesterol 42 mg/dL (0-40)
[2023-03-22 10:38] LABS: Direct LDL Cholesterol 80.54 mg/dL (100-129)
[2023-03-22 10:58] LABS: Thyroid Stimulating Hormone 1.97 uIU/mL (0.465-4.68)
[2023-03-22 11:01] LABS: Hemoglobin A1C 6.9 % (4.0-6.0)
[2023-03-23 08:25] LABS: CEA 6.4 ng/mL (0.0-4.7); Cancer Antigen (CA) 125 10.5 U/mL (0.0-38.1)
== END ==
PROVIDERS: PCP Internal Medicine Adolescent Medicine; Visit Provider Internal Medicine Adolescent Medicine
DX: E11.9 Type 2 diabetes mellitus without complications (principal); E03.9 Hypothyroidism, unspecified; E78.5 Hyperlipidemia, unspecified; Z85.42 Personal history of malignant neoplasm of other parts of uterus; Z79.4 Long term (current) use of insulin
CPT/HCPCS: 36415; 80053; 80061; 82378; 83036; 84443; 85025; 86316

== ENCOUNTER → 2023-03-29 08:23 | Outpatient (CLI) | payer OTHER, SELFPAY ==
[2023-03-29 09:37] LABS: C-Reactive Protein 4.9 mg/L (0-4)
[2023-03-30 11:14] LABS: CA 19-9 17 U/mL (0-35); CEA 6.3 ng/mL (0.0-4.7)
== END ==
LOC: LAB 08:23
PROVIDERS: PCP Internal Medicine Adolescent Medicine; Visit Provider Nurse Practitioner
DX: R10.9 Unspecified abdominal pain (principal); R13.10 Dysphagia, unspecified; R19.7 Diarrhea, unspecified; Z85.42 Personal history of malignant neoplasm of other parts of uterus
CPT/HCPCS: 36415; 82378; 86140; 86316

== ENCOUNTER → 2023-04-16 08:10 | Outpatient (CLI) | payer OTHER, SELFPAY ==
--- NOTE | 2023-04-16 08:15 | US_ITS ---
FINAL REPORT TECHNIQUE: Ultrasound images of the abdomen were obtained. CLINICAL HISTORY: pain and bloating- ct + node FINDINGS: Sonographic images of the abdomen were obtained. There is fatty infiltration of the liver. There are gallstones in the gallbladder with a small amount of pericholecystic fluid. The gallbladder wall measures in the upper limits of normal at 3 mm. There is no evidence of biliary ductal dilatation. The common hepatic duct measures 4 mm, which is within normal limits. Limited images of the pancreas are unremarkable. The spleen size is normal. The right kidney measures 10.3 cm in length. The left kidney measures 11.6 cm in length. There is normal renal echogenicity. There is no evidence of hydronephrosis. The aorta has an unremarkable appearance. Limited images of the inferior vena cava are unremarkable. IMPRESSION: Cholelithiasis with a small amount of pericholecystic fluid. Fatty liver Reviewed, Interpreted and Dictated by Moy Lopez MD Transcribed by Angelia Pool Authenticated and [facility]
== END ==
PROVIDERS: PCP Internal Medicine Adolescent Medicine; Visit Provider Nurse Practitioner
DX: R10.9 Unspecified abdominal pain (principal); R59.9 Enlarged lymph nodes, unspecified
CPT/HCPCS: 76700

== ENCOUNTER 2023-04-17 11:37 | Day surgery (SDC) | payer OTHER, SELFPAY ==
[2023-04-17] VITALS (7 sets, daily range): BP systolic 128–178; BP diastolic 61–89; PULSE 70–94; RESP 15–18; TEMP 36.2–36.3; O2SAT 97–100; BMI 37.6
[2023-04-17 12:28] LABS: POC Glucose,Bedside 141 (70-110)
--- NOTE | 2023-04-17 13:34 | HMH.SCOPE ---
Procedure: Date: 04/17/23 Patient Date of :: 1970 Procedure Performed:: Colonoscopy Indications:: Alternating bowel habits. Abdominal pain Performing Provider:: Torsten Olivares MD Referring Provider:: Evelia Sigala APRN Sedation:: See RN records Procedure:: After placing the patient in the left lateral decubitus position, the colonoscopy was gently inserted into the rectum and under direct visualization advanced to the cecum which was identified by transillumination in the right lower quadrant, identification of the ileocecal valve, appendiceal orifice, and cecal strap. Color, texture, mucosa, and anatomy of the colon were carefully examined with the scope. Bowel preparation was excellent. Findings:: Anal canal: normal Rectum: hemorrhoids Sigmoid colon: normal without polyps or inflammatory changes Descending colon: Sessile polyp less than 10 mm in size. Removed with hot snare polypectomy Splenic flexure: normal Transverse colon: Sessile polyp 5 mm in size. Removed with cold snare polypectomy Hepatic flexure: normal Ascending colon: Sessile polyp 10-11 mm in size. Removed with hot snare polypectomy Cecum: normal Terminal ileum: not visualized Impression: Polyp of ascending colon Polyp of transverse colon Polyp of descending colon The sigmoid colon was fixed and angulated, suggestive of intraabdominal adhesions Recommendations:: Await pathology results Repeat colonoscopy in 3 years Follow up in GI office Complications:: None Estimated blood obtained (mL): 0 Colonoscopy Component Colonoscopy Component Was a colonoscopy performed during today's procedure?: Yes Recommended follow up colonoscopy of at least 10 years?: Yes
--- NOTE | 2023-04-17 13:38 | HMH.SCOPE ---
Procedure: Date: 04/17/23 Patient Date of :: 1970 Procedure Performed:: EGD Indications:: Dysphagia. Chronic alternating bowel habits Performing Provider:: Torsten Olivares MD Referring Provider:: Evelia Sigala APRN Sedation:: See RN records Procedure:: The gastroscope was gently passed through the incisoral orifice into the oral cavity and under direct visualization the esophagus was intubated. The endoscope was passed down the esophagus, through the stomach, and into the duodenum. Color, texture, mucosa, and anatomy of the esophagus, stomach, and duodenum were carefully examined with the scope. Findings:: Oropharynx: normal Esophagus: normal. Biopsies obtained. Empiric dilatation performed with 54F bougie dilator EG Junction: intact at 40 cm Cardia: normal Fundus: normal Body: Diffuse gastric erythema. Biopsy obtained Antrum: Diffuse gastric erythema. Biopsy obtainedl Duodenal bulb: normal Duodenum (second and third portion): normal. Biopsies obtained Recommendations:: Await pathology results Move forward to colonoscopy for evaluation of alternating bowel habits and abdominal pain Complications:: None Estimated blood obtained (mL): 0 Colonoscopy Component Colonoscopy Component Was a colonoscopy performed during today's procedure?: No
--- NOTE | 2023-04-17 14:55 | EXP.ANES.CKL ---
[facility] Disclaimer: The information contained in this section may have been updated after the patient was seen, as this information can be updated by other users. Medical History Abdominal pain Asthma Cancer Constipation Diabetes mellitus, type 2 Diarrhea History of gastroesophageal reflux (GERD) Hyperlipidemia Thyroid disease Urinary tract infection Surgical History History of carpal tunnel surgery History of dilation and curettage History of hysterectomy History of thyroidectomy Social History (Updated 04/17/23 @ 11:56 by Windy Sanchez RN) Smoking Status: Current every day smoker tobacco type: cigarettes packs per day: 1 alcohol intake: never substance use type: denies use current occupational status: employed Travel in the last 8 weeks: None household members: family housing: house [facility] Anesthesia Checklist Patient Identification Patient Identification: Verbal (Name & ) Structural Data Admitted From: Home Planned Operative Procedure/s: egd/colonoscopy Consent for Planned Operative Procedure(s) Verified: Yes Airway Assessment C-Spine Mobility Assessed: Yes TMJ Mobility Assessed: Yes Dentition: Good Dentition Neurological Assessment Level of Consciousness: Awake, Alert and Appropriate Anesthesia Plan Anesthesia Risk discussed: Yes Anesthesia Plan: Verified ASA Class: II Anesthesia Type: MAC
== END 2023-04-17 14:40 | disposition home or self-care (01) ==
PROVIDERS: PCP Internal Medicine Adolescent Medicine; Visit Provider Internal Medicine
PROC: 0DJ08ZZ Inspection of Upper Intestinal Tract, Via Natural or Artificial Opening Endoscopic (ICD-10-PCS; CPT 43235; principal; 2023-04-17 12:30)
DX: K29.50 Unspecified chronic gastritis without bleeding (principal); B96.81 Helicobacter pylori [H. pylori] as the cause of diseases classified elsewhere; D12.2 Benign neoplasm of ascending colon; D12.3 Benign neoplasm of transverse colon; D12.4 Benign neoplasm of descending colon; R13.10 Dysphagia, unspecified; R19.4 Change in bowel habit; K64.8 Other hemorrhoids; E11.9 Type 2 diabetes mellitus without complications
CPT/HCPCS: 45385; 43239; 43248; 82962; J2704

== ENCOUNTER → 2023-05-24 08:21 | Outpatient (CLI) | payer OTHER, SELFPAY ==
[2023-05-25 16:29] LABS: H. pylori Breath Test Negative (Negative)
== END ==
PROVIDERS: PCP Internal Medicine Adolescent Medicine; Visit Provider Nurse Practitioner
DX: A04.8 Other specified bacterial intestinal infections (principal); R10.9 Unspecified abdominal pain
CPT/HCPCS: 83013

== ENCOUNTER → 2023-06-04 08:53 | Outpatient (CLI) | payer OTHER, SELFPAY ==
[2023-06-06 17:08] LABS: Calprotectin, Fecal 80 ug/g (0-120)
[2023-06-10 14:20] LABS: Pancreatic Elastase, Fecal 78 (>200)
== END ==
PROVIDERS: PCP Internal Medicine Adolescent Medicine; Visit Provider Nurse Practitioner
DX: R10.9 Unspecified abdominal pain (principal); R14.0 Abdominal distension (gaseous)
CPT/HCPCS: 82656; 83993

== ENCOUNTER 2023-07-05 15:23 | Emergency (ER) | payer OTHER, SELFPAY ==
[2023-07-05 15:23] VITALS: BP 124/78; PULSE 76; RESP 17; TEMP 36.8; O2SAT 98; BMI 37.0
--- NOTE | 2023-07-05 15:41 | EXP.UTC ---
Discharge Plan Disposition Patient Disposition: Home, Self-Care Condition: Good Prescriptions Prescriptions: New azithromycin [Zithromax Z-Xander] 250 mg tablet See Rx Instructions .ROUTE .COMPLEX 5 Days Qty: 6 0RF Rx Instructions: For 250 mg dose pack: take 500 mg today (day 1), then 250 mg for 4 days (days 2-5) benzonatate 100 mg capsule 100 mg PO TID PRN (Reason: cough) Qty: 30 0RF methylprednisolone [Medrol (Xander)] 4 mg tablets,dose pack See Rx Instructions .Route .COMPLEX 6 Days Qty: 21 0RF Rx Instructions: taper pack; No Action bismuth subcit D-susfejkai-zhk [Pylera] 140-125-125 mg capsule 3 cap PO QID 14 Days Qty: 168 0RF Rx Instructions: Take until gone. Do not miss any doses. omeprazole 40 mg capsule,delayed release(DR/EC) 40 mg PO BID Qty: 28 0RF Rx Instructions: DO NOT TAKE ANY OTHER OMEPRAZOLE DURING THIS TREATMENT fluconazole 150 mg tablet 150 mg PO DAILY MDD 150 mg (1 tab) Qty: 2 0RF Rx Instructions: Take after antibiotic therapy IF you develop a vaginal yeast infection. May repeat in 3 days if still having issues. levothyroxine 125 mcg tablet 125 mcg PO DAILY metoclopramide HCl 10 mg tablet 10 mg PO QID Patient Comments: TAKE 1 TABLET BY MOUTH 4 TIMES A DAY (BEFORE MEALS AND AT BEDTIME) atorvastatin 10 mg tablet 10 mg PO HS Patient Comments: TAKE 1 TABLET BY MOUTH EVERY DAY FOR 30 DAYS cyanocobalamin (vitamin B-12) 1,000 mcg/mL solution 1,000 mcg SQ QMONTH diazepam 5 mg tablet 5 mg PO DAILY PRN (Reason: anxiety) escitalopram oxalate 20 mg tablet 20 mg PO DAILY gabapentin 600 mg tablet 600 mg PO HS Patient Comments: TAKE ONE CAPSULE BY MOUTH AT BEDTIME FOR 30 DAYS metoprolol succinate 25 mg tablet extended release 24 hr 25 mg PO DAILY oxybutynin chloride 5 mg tablet 5 mg PO DAILY Levemir FlexTouch U100 Insulin 100 unit/mL (3 mL) insulin pen See Rx Instructions SQ .COMPLEX Rx Instructions: 35 units qAM, 25 units qPM SQ; insulin aspart U-100 [Novolog FlexPen U-100 Insulin] 100 unit/mL (3 mL) insulin pen See Rx Instructions SQ .COMPLEX Rx Instructions: per patient's sliding scale SQ; levocetirizine 5 mg tablet 5 mg PO DAILY colestipol [Colestid] 1 gram tablet 1 g PO BID Qty: 120 1RF albuterol sulfate 8.5 GM HFA aerosol inhaler 2 puffs IH Q6HP PRN (Reason: Shortness Of Breath) 30 Days Qty: 1 5RF benzonatate 100 mg capsule 100 mg PO TID PRN (Reason: cough) Qty: 30 1RF mupirocin 2 % ointment 1 applic TP TID Referrals Follow up/Referrals: Mayank Choe MD [Primary Care Provider] - See instructions Activity Restrictions/Add. Instructions Additional Instructions/Restrictions: *Monitor Temp, Over the counter Motrin or Tylenol as directed/as needed Tylenol every 4 hours and Motrin every 6 hours (as long as your family doctor has told you that you can take it) for fever or pain. and straight to ER if unable to lower temp less than 101.0 after medication given *Warm salt water gargles may help to soothe the throat *Throat Lozenges? *Warm fluids like tea with honey may help to soothe the throat? *Sleep elevated *Humidifier/Vaporizer Follow up IMMEDIATELY for new or worsening symptoms or no Noticeable improvement over the next 48-72 hours. 911 for difficulty breathing or swallowing Clinical Impressions Clinical Impression: URI (upper respiratory infection) Qualifiers: URI type: unspecified URI Qualified Code(s): J06.9 - Acute upper respiratory infection, unspecified Instructions Patient Instructions: Sore Throat Discharge ED Provider: Faye Medrano [facility] [place] General Stated complaint: congestion Mode of Arrival: Ambulatory Source of Information: Patient Limitations: No Limitations Time Seen by Provider: 07/05/23 15:41 Description of Symptoms (Recalle
[2023-07-05 15:54] VITALS: BP 124/78; PULSE 76; RESP 17; TEMP 36.8; O2SAT 98
== END 2023-07-05 15:54 | disposition home or self-care (01) ==
PROVIDERS: Emergency Provider Nurse Practitioner; PCP Internal Medicine Adolescent Medicine
DX: J06.9 Acute upper respiratory infection, unspecified (principal); F17.210 Nicotine dependence, cigarettes, uncomplicated; J45.909 Unspecified asthma, uncomplicated; E11.9 Type 2 diabetes mellitus without complications; E78.5 Hyperlipidemia, unspecified; E03.9 Hypothyroidism, unspecified; Z79.4 Long term (current) use of insulin
CPT/HCPCS: 99212; 99214; G0463

== ENCOUNTER 2023-09-06 09:55 | Emergency (ER) | payer OTHER, SELFPAY ==
[2023-09-06 10:20] VITALS: BP 137/82; PULSE 78; RESP 19; TEMP 36.9; O2SAT 99; BMI 37.7
[2023-09-06 10:30] LABS: UTC Strep Screen (Rapid) Negative (Negative)
--- NOTE | 2023-09-06 10:30 | EXP.UTC ---
Discharge Plan Disposition Patient Disposition: Home, Self-Care Condition: Good Prescriptions Prescriptions: New albuterol sulfate [Ventolin HFA] 90 mcg/actuation HFA aerosol inhaler 2 puffs inhalation QIDP PRN (Reason: Wheezing) 30 Days Qty: 1 0RF dextromethorphan-guaifenesin [Mucinex DM] 60-1,200 mg tablet extended release 12 hr 1 tab PO BID Qty: 20 0RF azithromycin [Zithromax Z-Xander] 250 mg tablet See Rx Instructions .ROUTE .COMPLEX Qty: 6 0RF Rx Instructions: For 250 mg dose pack: take 500 mg today (day 1), then 250 mg for 4 days (days 2-5) No Action bismuth subcit M-eaixxejhu-idx [Pylera] 140-125-125 mg capsule 3 cap PO QID 14 Days Qty: 168 0RF Rx Instructions: Take until gone. Do not miss any doses. omeprazole 40 mg capsule,delayed release(DR/EC) 40 mg PO BID Qty: 28 0RF Rx Instructions: DO NOT TAKE ANY OTHER OMEPRAZOLE DURING THIS TREATMENT fluconazole 150 mg tablet 150 mg PO DAILY MDD 150 mg (1 tab) Qty: 2 0RF Rx Instructions: Take after antibiotic therapy IF you develop a vaginal yeast infection. May repeat in 3 days if still having issues. levothyroxine 125 mcg tablet 125 mcg PO DAILY metoclopramide HCl 10 mg tablet 10 mg PO QID Patient Comments: TAKE 1 TABLET BY MOUTH 4 TIMES A DAY (BEFORE MEALS AND AT BEDTIME) atorvastatin 10 mg tablet 10 mg PO HS Patient Comments: TAKE 1 TABLET BY MOUTH EVERY DAY FOR 30 DAYS cyanocobalamin (vitamin B-12) 1,000 mcg/mL solution 1,000 mcg SQ QMONTH diazepam 5 mg tablet 5 mg PO DAILY PRN (Reason: anxiety) escitalopram oxalate 20 mg tablet 20 mg PO DAILY gabapentin 600 mg tablet 600 mg PO HS Patient Comments: TAKE ONE CAPSULE BY MOUTH AT BEDTIME FOR 30 DAYS metoprolol succinate 25 mg tablet extended release 24 hr 25 mg PO DAILY oxybutynin chloride 5 mg tablet 5 mg PO DAILY Levemir FlexTouch U100 Insulin 100 unit/mL (3 mL) insulin pen See Rx Instructions SQ .COMPLEX Rx Instructions: 35 units qAM, 25 units qPM SQ; insulin aspart U-100 [Novolog FlexPen U-100 Insulin] 100 unit/mL (3 mL) insulin pen See Rx Instructions SQ .COMPLEX Rx Instructions: per patient's sliding scale SQ; levocetirizine 5 mg tablet 5 mg PO DAILY colestipol [Colestid] 1 gram tablet 1 g PO BID Qty: 120 1RF albuterol sulfate 8.5 GM HFA aerosol inhaler 2 puffs IH Q6HP PRN (Reason: Shortness Of Breath) 30 Days Qty: 1 5RF benzonatate 100 mg capsule 100 mg PO TID PRN (Reason: cough) Qty: 30 1RF mupirocin 2 % ointment 1 applic TP TID azithromycin [Zithromax Z-Xander] 250 mg tablet See Rx Instructions .ROUTE .COMPLEX 5 Days Qty: 6 0RF Rx Instructions: For 250 mg dose pack: take 500 mg today (day 1), then 250 mg for 4 days (days 2-5) benzonatate 100 mg capsule 100 mg PO TID PRN (Reason: cough) Qty: 30 0RF methylprednisolone [Medrol (Xander)] 4 mg tablets,dose pack See Rx Instructions .Route .COMPLEX 6 Days Qty: 21 0RF Rx Instructions: taper pack; Referrals Follow up/Referrals: Mayank Choe MD [Primary Care Provider] - See instructions Clinical Impressions Clinical Impression: Sinusitis, Bronchitis Instructions Patient Instructions: DI for Sinusitis Discharge ED Provider: Minda Samuels [facility] [place] General Stated complaint: cough, sore throat Time Seen by Provider: 09/06/23 10:30 History of Present Illness Provider Complaint: Cough, congestion, chest tightness X 3-4 days. No fever. Onset (ago): day(s) (4) Associated symptoms: cough and shortness of breath Treatments prior to arrival: none Related Data Home Medications Medication Instructions Recorded Confirmed atorvastatin 10 mg tablet 10 mg PO HS Cholesterol 06/11/22 05/30/23 cyanocobalamin (vitamin B-12) 1,000 mcg SQ QMONTH Supplement 06/11/22 05/30/23 1,000 mcg/mL injection solution diazepam 5 mg table
[2023-09-06 10:42] VITALS: BP 137/82; PULSE 78; RESP 19; TEMP 36.9; O2SAT 99
== END 2023-09-06 10:49 | disposition home or self-care (01) ==
PROVIDERS: Emergency Provider Physician Assistant; PCP Internal Medicine Adolescent Medicine
DX: J01.90 Acute sinusitis, unspecified (principal); J20.9 Acute bronchitis, unspecified; R06.02 Shortness of breath; R07.0 Pain in throat; R09.81 Nasal congestion; F17.210 Nicotine dependence, cigarettes, uncomplicated; J45.909 Unspecified asthma, uncomplicated; E11.9 Type 2 diabetes mellitus without complications; E78.5 Hyperlipidemia, unspecified; E03.9 Hypothyroidism, unspecified; Z79.4 Long term (current) use of insulin
CPT/HCPCS: 87880; 96372; 99212; 99214; G0463; J1040

== ENCOUNTER 2023-10-04 10:35 | Emergency (ER) | payer OTHER, SELFPAY ==
[2023-10-04 11:00] VITALS: BP 127/71; PULSE 91; RESP 19; TEMP 36.9; O2SAT 99; BMI 36.6
[2023-10-04 11:11] LABS: Coronavirus 19, PCR Not Detected (NotDetected); Influenza B, PCR Not Detected (NotDetected)
--- NOTE | 2023-10-04 11:15 | EXP.UTC ---
Discharge Plan Disposition Patient Disposition: Home, Self-Care Condition: Good Prescriptions Prescriptions: New azithromycin [Zithromax Z-Xander] 250 mg tablet See Rx Instructions .ROUTE .COMPLEX 5 Days Qty: 6 0RF Rx Instructions: For 250 mg dose pack: take 500 mg today (day 1), then 250 mg for 4 days (days 2-5) benzonatate 100 mg capsule 100 mg PO TID PRN (Reason: cough) Qty: 30 0RF methylprednisolone [Medrol (Xander)] 4 mg tablets,dose pack See Rx Instructions .Route .COMPLEX 6 Days Qty: 21 0RF Rx Instructions: taper pack; ondansetron 4 mg tablet,disintegrating 4 mg PO Q8H PRN (Reason: nausea and vomiting) Qty: 10 0RF No Action bismuth subcit O-epprfkfrn-yby [Pylera] 140-125-125 mg capsule 3 cap PO QID 14 Days Qty: 168 0RF Rx Instructions: Take until gone. Do not miss any doses. omeprazole 40 mg capsule,delayed release(DR/EC) 40 mg PO BID Qty: 28 0RF Rx Instructions: DO NOT TAKE ANY OTHER OMEPRAZOLE DURING THIS TREATMENT fluconazole 150 mg tablet 150 mg PO DAILY MDD 150 mg (1 tab) Qty: 2 0RF Rx Instructions: Take after antibiotic therapy IF you develop a vaginal yeast infection. May repeat in 3 days if still having issues. levothyroxine 125 mcg tablet 125 mcg PO DAILY metoclopramide HCl 10 mg tablet 10 mg PO QID Patient Comments: TAKE 1 TABLET BY MOUTH 4 TIMES A DAY (BEFORE MEALS AND AT BEDTIME) atorvastatin 10 mg tablet 10 mg PO HS Patient Comments: TAKE 1 TABLET BY MOUTH EVERY DAY FOR 30 DAYS cyanocobalamin (vitamin B-12) 1,000 mcg/mL solution 1,000 mcg SQ QMONTH diazepam 5 mg tablet 5 mg PO DAILY PRN (Reason: anxiety) escitalopram oxalate 20 mg tablet 20 mg PO DAILY gabapentin 600 mg tablet 600 mg PO HS Patient Comments: TAKE ONE CAPSULE BY MOUTH AT BEDTIME FOR 30 DAYS metoprolol succinate 25 mg tablet extended release 24 hr 25 mg PO DAILY oxybutynin chloride 5 mg tablet 5 mg PO DAILY Levemir FlexTouch U100 Insulin 100 unit/mL (3 mL) insulin pen See Rx Instructions SQ .COMPLEX Rx Instructions: 35 units qAM, 25 units qPM SQ; insulin aspart U-100 [Novolog FlexPen U-100 Insulin] 100 unit/mL (3 mL) insulin pen See Rx Instructions SQ .COMPLEX Rx Instructions: per patient's sliding scale SQ; levocetirizine 5 mg tablet 5 mg PO DAILY colestipol [Colestid] 1 gram tablet 1 g PO BID Qty: 120 1RF albuterol sulfate 8.5 GM HFA aerosol inhaler 2 puffs IH Q6HP PRN (Reason: Shortness Of Breath) 30 Days Qty: 1 5RF benzonatate 100 mg capsule 100 mg PO TID PRN (Reason: cough) Qty: 30 1RF mupirocin 2 % ointment 1 applic TP TID azithromycin [Zithromax Z-Xander] 250 mg tablet See Rx Instructions .ROUTE .COMPLEX 5 Days Qty: 6 0RF Rx Instructions: For 250 mg dose pack: take 500 mg today (day 1), then 250 mg for 4 days (days 2-5) benzonatate 100 mg capsule 100 mg PO TID PRN (Reason: cough) Qty: 30 0RF methylprednisolone [Medrol (Xander)] 4 mg tablets,dose pack See Rx Instructions .Route .COMPLEX 6 Days Qty: 21 0RF Rx Instructions: taper pack; albuterol sulfate [Ventolin HFA] 90 mcg/actuation HFA aerosol inhaler 2 puffs inhalation QIDP PRN (Reason: Wheezing) 30 Days Qty: 1 0RF dextromethorphan-guaifenesin [Mucinex DM] 60-1,200 mg tablet extended release 12 hr 1 tab PO BID Qty: 20 0RF azithromycin [Zithromax Z-Xander] 250 mg tablet See Rx Instructions .ROUTE .COMPLEX Qty: 6 0RF Rx Instructions: For 250 mg dose pack: take 500 mg today (day 1), then 250 mg for 4 days (days 2-5) Referrals Follow up/Referrals: Mayank Choe MD [Primary Care Provider] - See instructions Activity Restrictions/Add. Instructions Additional Instructions/Restrictions: *Monitor Temp, Over the counter Motrin or Tylenol as directed/as needed Tylenol every 4 hours and Motrin every 6 hours (as long as your fami
[2023-10-04 11:43] VITALS: BP 127/71; PULSE 91; RESP 19; TEMP 36.9; O2SAT 99
[2023-10-04 13:22] LABS: Influenza A, PCR Detected (NotDetected)
== END 2023-10-04 12:00 | disposition home or self-care (01) ==
PROVIDERS: Emergency Provider Nurse Practitioner; PCP Internal Medicine Adolescent Medicine
DX: J10.1 Influenza due to other identified influenza virus with other respiratory manifestations (principal); H66.91 Otitis media, unspecified, right ear; R05.9 Cough, unspecified; R51.9 Headache, unspecified; R09.81 Nasal congestion; R68.83 Chills (without fever); M79.18 Myalgia, other site; F17.210 Nicotine dependence, cigarettes, uncomplicated; E11.9 Type 2 diabetes mellitus without complications; E78.5 Hyperlipidemia, unspecified; E03.9 Hypothyroidism, unspecified; J45.909 Unspecified asthma, uncomplicated; I10 Essential (primary) hypertension; K21.9 Gastro-esophageal reflux disease without esophagitis; Z20.822 Contact with and (suspected) exposure to COVID-19; Z79.4 Long term (current) use of insulin
CPT/HCPCS: 87636; 99212; 99214; G0463

== ENCOUNTER → 2023-10-10 08:48 | Outpatient (CLI) | payer OTHER, SELFPAY ==
[2023-10-10 09:23] LABS: Basophils % 0.4 % (0.1-2.0); Eosinophils # 0.1 K/mm3 (0.0-0.4); Eosinophils % 1.2 % (0.1-12.0); Hematocrit 41.9 % (37.0-47.0); Hemoglobin 14.3 g/dL (12.2-16.2); Lymphocytes # 1.8 K/mm3 (0.7-4.5); Lymphocytes % 27.9 % (10-50); Mean Corpuscular Hemoglobin 31.3 pg (27.0-31.2); Mean Corpuscular Volume 91.9 fl (81-99); Mean Platelet Volume 8.1 fl (7.4-10.4); Monocytes # 0.3 K/mm3 (0.1-1.0); Neutrophils # 4.2 K/mm3 (1.8-7.8); Neutrophils % 66.5 % (37.0-80.0); Platelet Count 189 K/mm3 (142-424); Red Blood Count 4.56 M/mm3 (4.20-5.40); Red Cell Distribution Width 13.6 % (11.5-17.5); White Blood Count 6.4 K/mm3 (4.8-10.8)
[2023-10-10 10:16] LABS: Alanine Aminotransferase 30 U/L (12-78); Alkaline Phosphatase 53 U/L (38-126); Aspartate Amino Transferase 36 U/L (14-36); Bilirubin,Total 0.6 mg/dl (0.2-1.3); Blood Urea Nitrogen 13 mg/dl (7-17); Calcium 8.7 mg/dl (8.4-10.2); Carbon Dioxide 29 mmol/L (22.0-30.0); Chloride 104 mmol/L (98-107); Chol/HDL Ratio 6.8 (1-3.5); Cholesterol 171 mg/dl (140-200); Estimated Glomerular Filt Rate 58 ml/min (>60); GFR (African American) 70 ML/MIN (>60); Glucose 162 mg/dl (74-100); HDL Cholesterol 25 mg/dl (40-60); Triglycerides 179 mg/dl (30-150); VLDL Cholesterol 36 mg/dL (0-40)
[2023-10-10 10:47] LABS: Thyroid Stimulating Hormone 1.41 uIU/mL (0.465-4.68)
[2023-10-10 15:27] LABS: Anion Gap 10.5 mEq/L (5-15); Potassium 4.5 mmoL/L (3.5-5.1); Sodium 139 mmol/L (136-145)
[2023-10-10 15:30] LABS: Albumin Level 4.4 g/dl (3.5-5.0); Albumin/Globulin Ratio 1.6 (1.1-1.8); Globulin 2.8 g/dL (1.3-3.2); Total Protein,Serum 7.2 g/dl (6.3-8.2)
== END ==
PROVIDERS: PCP Internal Medicine Adolescent Medicine; Visit Provider Internal Medicine Adolescent Medicine
DX: E11.69 Type 2 diabetes mellitus with other specified complication (principal); E78.2 Mixed hyperlipidemia; E03.9 Hypothyroidism, unspecified; Z85.42 Personal history of malignant neoplasm of other parts of uterus; Z79.4 Long term (current) use of insulin; Z72.0 Tobacco use
CPT/HCPCS: 36415; 80053; 80061; 83036; 84443; 85025

== ENCOUNTER 2023-10-31 09:03 | Outpatient (CLI) | payer OTHER, SELFPAY ==
--- NOTE | 2023-10-31 09:08 | CT_ITS ---
FINAL REPORT TECHNIQUE: Axial CT images of the abdomen and pelvis were obtained before and after the administration of IV contrast. Oral contrast was administered.This study was performed with techniques to keep radiation doses as low as reasonably achievable (ALARA). Individualized dose reduction techniques using automated exposure control or adjustment of mA and/or kV according to the patient's size were employed. CLINICAL HISTORY: HISTORY OF UTERINE CANCER CT CHEST W/WO ALSO PERFORMED COMPARISON: 03/21/2023 FINDINGS: Abdomen: The lung bases are clear. The heart is normal in size. The liver has an unremarkable appearance, without evidence of mass or biliary duct dilatation. There is mild gallbladder wall thickening and one or possibly more gallstones, stable since the prior exam.. The spleen is unremarkable. No adrenal masses present. The pancreas has an unremarkable appearance. The kidneys enhance normally. The aorta is normal in caliber. There is no free fluid or adenopathy. The portacaval node noted on the prior CT examination measuring 25 mm is unchanged in appearance or size. Precontrast images demonstrate no evidence of nephrolithiasis. Pelvis: The appendix is normal in appearance. The uterus has been surgically resected. The urinary bladder is unremarkable. No inflammatory process is seen. There is no evidence of mass or adenopathy. There is no evidence of bowel obstruction. IMPRESSION: Mild gallbladder wall thickening with at least one gallstone, unchanged in appearance since the prior CT of February 2023. Portacaval node noted on the prior exam remained stable as well. No new adenopathy or mass is seen. Reviewed, Interpreted and Dictated by Alberto Chong III, MD Transcribed by Joy Mcneal Authenticated and [facility]
--- NOTE | 2023-10-31 09:23 | CT_ITS ---
FINAL REPORT TECHNIQUE: Before and after the administration of intravenous contrast, axial images through the chest were performed by computed tomography.This study was performed with techniques to keep radiation doses as low as reasonably achievable, (ALARA). Individualized dose reduction techniques using automated exposure control or adjustment of mA and/or kV according to the patient's size were employed. CLINICAL HISTORY: PULMONARY NODULES COMPARISON: 03/21/2023 FINDINGS: CHEST CT WITH AND WITHOUT CONTRAST: No hilar or mediastinal adenopathy is seen. No axillary adenopathy is present. No pleural effusions or pericardial effusion is seen. There is a 4 mm nodule in the lateral aspect of the right upper lobe, seen on the prior CT of February 2023, and stable. This nodule is best seen on image #34. There is also a lateral left upper lobe nodule, 3 mm in size, best seen on image #28, also stable when compared to the prior exam. There are several other small less than 5 mm in size nodules in the left upper lung field. No confluent infiltrates are identified. IMPRESSION: Several pulmonary nodules as described, stable since the prior exam of 2022. No new infiltrate, mass, or adenopathy is seen. Reviewed, Interpreted and Dictated by Alberto Chong III, MD Transcribed by Joy Mcneal Authenticated and [facility]
[2023-10-31] MEDS: IOPAMIDOL-370 (76%);100ML BOTTLE 75 ML IV (09:46)
[2023-10-31] MEDS: SODIUM CHLORIDE 0.9% 10ML SYR (RAD ONLY) 10 ML IV (09:46)
== END 2023-10-31 23:59 ==
LOC: RAD 09:03
PROVIDERS: PCP Internal Medicine Adolescent Medicine; Visit Provider Internal Medicine Adolescent Medicine
DX: R91.8 Other nonspecific abnormal finding of lung field (principal); Z85.42 Personal history of malignant neoplasm of other parts of uterus
CPT/HCPCS: 71270; 74178; Q9967

== ENCOUNTER 2024-02-03 09:03 | Emergency (ER) | payer OTHER, SELFPAY ==
[2024-02-03 09:15] VITALS: BP 135/62; PULSE 76; RESP 18; TEMP 36.6; O2SAT 96; BMI 36.8
--- NOTE | 2024-02-03 09:32 | ED_ITS ---
Discharge Plan Disposition Patient Disposition: Home, Self-Care Condition: Good Prescriptions Prescriptions: New cyclobenzaprine 10 mg tablet 10 mg PO TID PRN (Reason: muscle spasm) Qty: 12 0RF etodolac 200 mg capsule 200 mg PO Q8H PRN (Reason: pain) Qty: 12 0RF No Action levothyroxine 125 mcg tablet 125 mcg PO DAILY atorvastatin 10 mg tablet 10 mg PO HS Patient Comments: TAKE 1 TABLET BY MOUTH EVERY DAY FOR 30 DAYS cyanocobalamin (vitamin B-12) 1,000 mcg/mL solution 1,000 mcg SQ QMONTH diazepam 5 mg tablet 5 mg PO DAILY PRN (Reason: anxiety) escitalopram oxalate 20 mg tablet 20 mg PO DAILY metoprolol succinate 25 mg tablet extended release 24 hr 25 mg PO DAILY Levemir FlexTouch U100 Insulin 100 unit/mL (3 mL) insulin pen See Rx Instructions SQ .COMPLEX Rx Instructions: 35 units qAM, 25 units qPM SQ; insulin aspart U-100 [Novolog FlexPen U-100 Insulin] 100 unit/mL (3 mL) insulin pen See Rx Instructions SQ .COMPLEX Rx Instructions: per patient's sliding scale SQ; albuterol sulfate 8.5 GM HFA aerosol inhaler 2 puffs IH Q6HP PRN (Reason: Shortness Of Breath) 30 Days Qty: 1 5RF albuterol sulfate [Ventolin HFA] 90 mcg/actuation HFA aerosol inhaler 2 puffs inhalation QIDP PRN (Reason: Wheezing) 30 Days Qty: 1 0RF Referrals Follow up/Referrals: Mayank Choe MD [Primary Care Provider] - See instructions Activity Restrictions/Add. Instructions Additional Instructions/Restrictions: *Etodolac margoth 8 hours with meal as needed for pain/inflammation *Not additional anti-inflammatory like Ibuprofen motrin, aleve, advil with the above amount of Etodolac. You can still take Tylenol every 4 hours as needed if you need something else for pain *Ice 20 minutes every 2 hours for the first 48 hours after the initial injury followed by moist heat every 20 minutes 3-4 times a day to affected area *Muscle relaxer every 8 hours as needed for muscle spasms but remember, it WILL cause drowsiness You cannot take it and drive, operate machinery or care for small children. *Keep this area active, no movement leads to more stiffness, However take it easy and avoid heavy lifting pushing or pulling *Follow up with you family doctor if no improvement for further treatment Clinical Impressions Clinical Impression: Low back pain Instructions Patient Instructions: Low Back Pain Discharge ED Provider: Faye Medrano [facility] [place] HPI General Stated complaint: back pain Time Seen by Provider: 02/03/24 09:30 History of Present Illness Provider Complaint: Patient states that she has a hx of back problems and sometime it will flare up on her States that she slipped a few days ago and tweaked her back and she has been having discomfort ever since so today she came in to see if she could get something to help with the spasms Related Data Home Medications Medication Instructions Recorded Confirmed atorvastatin 10 mg tablet 10 mg PO HS Cholesterol 06/11/22 02/03/24 cyanocobalamin (vitamin B-12) 1,000 mcg SQ QMONTH Supplement 06/11/22 02/03/24 1,000 mcg/mL injection solution diazepam 5 mg tablet 5 mg PO DAILY PRN anxiety 06/11/22 02/03/24 escitalopram oxalate 20 mg tablet 20 mg PO DAILY Depression 06/11/22 02/03/24 insulin aspart U-100 100 unit/mL See Rx Instructions SQ .COMPLEX DM 06/11/22 02/03/24 (3 mL) subcutaneous pen (Novolog FlexPen U-100 Insulin aspart) insulin detemir U-100 100 unit/mL See Rx Instructions SQ .COMPLEX DM 06/11/22 02/03/24 (3 mL) subcutaneous pen (Levemir FlexTouch U-100 Insulin) levothyroxine 125 mcg tablet 125 mcg PO DAILY Supplement 06/11/22 02/03/24 metoprolol succinate 25 mg 25 mg PO DAILY High blood pressure 06/11/22 02/03/24 tablet,extended release 24 hr Previous Rx's Medication Instructions Recorded albuterol sulfate 90 mcg/actuation 2 puffs inhalation Q6HP PRN 06/14/21 aerosol inhaler Shortness Of Breath 30 days ##1 albuterol sulfate 90 mcg/actuation 2 puffs inhalation QIDP PRN 09/06/23 aerosol inhaler (Ventolin HFA) Wheezing 30 days #1 ea cyclobenzaprine 10 mg tablet 10 mg PO TID PRN muscle spasm #12 02/03/24 tabs etodolac 200 mg capsule 200 mg PO Q8H PRN pain #12 caps 02/03/24 Allergies Allergy/AdvReac Type Severity Reaction Status Date / Time Penicillins Allergy Verified 02/03/24 09:34 [facility] Disclaimer: The information contained in this section may have been updated after the patient was seen, as this information can be updated by other users. Medical History Abdominal pain Asthma Cancer Constipation Diabetes mellitus, type 2 Diarrhea H. pylori infection History of gastroesophageal reflux (GERD) Hyperlipidemia Thyroid disease Urinary tract infection Surgical History History of carpal tunnel surgery History of dilation and curettage History of hysterectomy History of thyroidectomy Social History Smoking Status: Current every day smoker tobacco type: cigarettes packs per day: 1 alcohol intake: never substance use type: denies use current occupational status: employed Travel in the last 8 weeks: None household members: family housing: house ROS Obtained: Yes All systems reviewed & no additional complaints except as documented and Yes Systems reviewed as appropriate & no additional complaints except as documented Constitutional Constitutional: Reports system reviewed and no additional complaints, except as documented, Reports as per HPI, Denies body ache and Denies fever(s) Eyes Eyes: Reports system reviewed and no additional complaints, except as documented and Reports as per HPI ENT Ears, Nose, Mouth, and Throat: Reports system reviewed and no additional complaints, except as documented and Reports as per HPI Cardiovascular Cardiovascular: Reports system reviewed and no additional complaints, except as documented and Reports as per HPI Respiratory Respiratory: Reports system reviewed and no additional complaints, except as documented and Reports as per HPI Gastrointestinal Gastrointestingal: Reports system reviewed and no additional complaints, except as documented and as per HPI Genitourinary Female Genitourinary: Reports system reviewed and no additional complaints, except as documented, Reports as per HPI and Denies dysuria Musculoskeletal Musculoskeletal: Reports system reviewed and no additional complaints, except as documented, Reports as per HPI and Reports back pain Physical Exam General General appearance: alert and in no apparent distress ENT ENT exam: Present mucous membranes moist Respiratory Respiratory exam: Present normal lung sounds bilaterally; Absent respiratory distress or wheezes Cardiovascular Cardiovascular exam: Present regular rate, normal rhythm and normal heart sounds Back Exam Back exam: Present tenderness and muscle spasm Back 1 view image: 2 1. reports achy like feeling in lower back and spasms after falling over the weekend and tweaking her back Denies loss of control of bowel or bladder Neurological Exam Neurological exam: Present alert, oriented X3 and normal gait Medical Decision Making Chuck Inquiry Pt receiving controlled substance: No Chuck was queried for this patient: No Medical Decision Narrative: Discussed xray with patient and she declined at this time, patient states that she has take NSAIDs in the past with current medications without complications or reactions
[2024-02-03 09:45] VITALS: BP 135/62; PULSE 76; RESP 18; TEMP 36.6; O2SAT 96
== END 2024-02-03 09:45 | disposition home or self-care (01) ==
PROVIDERS: Emergency Provider Nurse Practitioner; PCP Internal Medicine Adolescent Medicine
DX: M54.50 Low back pain, unspecified (principal); M62.830 Muscle spasm of back; E11.9 Type 2 diabetes mellitus without complications; E78.5 Hyperlipidemia, unspecified; E03.9 Hypothyroidism, unspecified; F17.210 Nicotine dependence, cigarettes, uncomplicated; Z79.4 Long term (current) use of insulin
CPT/HCPCS: 99212; 99214; G0463

== ENCOUNTER 2024-09-23 08:13 | Emergency (ER) | payer OTHER, SELFPAY ==
[2024-09-23 08:48] VITALS: BP 141/63; PULSE 81; RESP 18; TEMP 36.9; O2SAT 99; BMI 36.0
[2024-09-23 08:49] LABS: Apearance,Urine Clear (Clear); Bilirubin,Urine Negative (Negative); Blood, Urine Negative (Negative); Color,Urine Dark Yellow (Yellow); Glucose,Urine (UA) 100 (Negative); Ketones,Urine Negative (Negative); PH,Urine 5.5 (5.0-8.5); Protein,Urine Negative (Negative); UTC Leukocyte Esterase,Urine Negative (Negative); UTC Nitrate,Urine Negative (Negative); Urobilinogen,Urine 0.2 EU/dl (0.2)
--- NOTE | 2024-09-23 09:05 | ED_ITS ---
Discharge Plan Disposition Patient Disposition: Home, Self-Care Condition: Good Prescriptions Prescriptions: No Action levothyroxine 125 mcg tablet 125 mcg PO DAILY atorvastatin 10 mg tablet 10 mg PO HS Patient Comments: TAKE 1 TABLET BY MOUTH EVERY DAY FOR 30 DAYS diazepam 5 mg tablet 5 mg PO DAILY PRN (Reason: anxiety) escitalopram oxalate 20 mg tablet 20 mg PO DAILY metoprolol succinate 25 mg tablet extended release 24 hr 25 mg PO DAILY Levemir FlexTouch U100 Insulin 100 unit/mL (3 mL) insulin pen See Rx Instructions SQ .COMPLEX Rx Instructions: 35 units qAM, 25 units qPM SQ; Fiasp U-100 Insulin 100 unit/mL solution 1 sliding scale dose SQ USEASDIRECTD Referrals Follow up/Referrals: Mayank Choe MD [Primary Care Provider] - See instructions Activity Restrictions/Add. Instructions Additional Instructions/Restrictions: Over the counter Motrin may help with pain and discomfort If symptoms persist follow up with your Family Doctor for furhter evaluation and testing Return if needed If pain worsens or any life threatening symptoms go straight to ER Clinical Impressions Clinical Impression: Back pain Qualifiers: Back pain location: back pain in unspecified location Chronicity: unspecified B ack pain laterality: right Qualified Code(s): M54.9 - Dorsalgia, unspecified Instructions Patient Instructions: Ibuprofen Print Language Print Language: Upper Sorbian Discharge ED Provider: Faye Medrano [facility] General Stated complaint: Pain in Lower R side and back Mode of Arrival: Ambulatory Source of Information: Patient Limitations: No Limitations Time Seen by Provider: 09/23/24 09:08 Description of Symptoms (Recalled from Triage Doc. by RN): PATIENT C/O SHARP PAIN TO RIGHT MID BACK WITH SOME NAUSEA THAT STARTED YESTERDAY, NO KNOWN INJURY HEENT Symptoms (Recalled from RN notes): No Resp Symptoms (Recalled from RN notes): No Skin Symptoms (Recalled from RN notes): Yes MS Symptoms (Recalled from RN notes): Yes Functional Status (Recalled from RN notes): WNL History of Present Illness Provider Complaint: Patient states that yesterday she started having a sharp stabbing like pain that would happen randomly on her right mid back area States last time it hurt her was around 3am this morning and not hurting now States she was worried that she may have a UTI and wanted to get her urine checked Related Data Home Medications ?Medication ?Instructions ?Recorded ?Confirmed atorvastatin 10 mg tablet 10 mg PO HS Cholesterol 06/11/22 09/23/24 diazepam 5 mg tablet 5 mg PO DAILY PRN anxiety 06/11/22 09/23/24 escitalopram oxalate 20 mg tablet 20 mg PO DAILY Depression 06/11/22 09/23/24 insulin detemir U-100 100 unit/mL See Rx Instructions SQ .COMPLEX DM 06/11/22 09/23/24 (3 mL) subcutaneous pen (Levemir FlexTouch U-100 Insulin) levothyroxine 125 mcg tablet 125 mcg PO DAILY Supplement 06/11/22 09/23/24 metoprolol succinate 25 mg 25 mg PO DAILY High blood pressure 06/11/22 09/23/24 tablet,extended release 24 hr insulin aspart (niacinamide) 1 sliding scale dose SQ 09/07/24 09/23/24 (U-100) 100 unit/mL subcutaneous USEASDIRECTD solution (Fiasp U-100 Insulin) Allergies Allergy/AdvReac Type Severity Reaction Status Date / Time Penicillins Allergy Verified 09/07/24 13:12 Worker's Comp Is this a Worker's Comp case?: No [facility] Disclaimer: The information contained in this section may have been updated after the patient was seen, as this information can be updated by other users. Medical History (Updated 09/23/24 @ 09:10 by Faye Medrano APRN) Reflux esophagitis Eustachian tube dysfunction Hoarseness of voice H. pylori infection Diarrhea Constipation Abdominal pain Thyroid disease Cancer History of gastroesophageal reflux (GERD) Urinary tract infection Diabetes mellitus, type 2 Asthma Hyperlipidemia Surgical History History of thyroidectomy History of dilation and curettage History of carpal tunnel surgery History of hysterectomy Social History Smoking Status: Current every day smoker tobacco type: cigarettes packs per day: 1 alcohol intake: never substance use type: denies use current occupational status: employed household members: family housing: house ROS Obtained: Yes All systems reviewed & no additional complaints except as documented and Yes Systems reviewed as appropriate & no additional complaints except as documented Constitutional Constitutional: Reports system reviewed and no additional complaints, except as documented, Reports as per HPI, Denies body ache, Denies chills and Denies fever(s) ENT Ears, Nose, Mouth, and Throat: Reports system reviewed and no additional complaints, except as documented and Reports as per HPI Cardiovascular Cardiovascular: Reports system reviewed and no additional complaints, except as documented and Reports as per HPI Respiratory Respiratory: Reports system reviewed and no additional complaints, except as documented and Reports as per HPI Gastrointestinal Gastrointestingal: Reports system reviewed and no additional complaints, except as documented, as per HPI and nausea; Denies abdominal pain, cramping, diarrhea or vomiting Genitourinary Female Genitourinary: Reports system reviewed and no additional complaints, except as documented and Reports as per HPI Musculoskeletal Musculoskeletal: Reports system reviewed and no additional complaints, except as documented, Reports as per HPI and Reports back pain (sharp pain on and off in right mid back area ) Physical Exam General General appearance: alert and in no apparent distress ENT ENT exam: Present normal exam, normal oropharynx, mucous membranes moist and TM's normal bilaterally Chest Chest inspection: Present normal inspection and symmetric chest wall rise Respiratory Respiratory exam: Present normal lung sounds bilaterally; Absent respiratory distress or wheezes Cardiovascular Cardiovascular exam: Present regular rate, normal rhythm and normal heart sounds Back Exam Back exam: Present normal inspection and full ROM; Absent tenderness, CVA tenderness (R), CVA tenderness (L) or muscle spasm Back 1 view image: 2 1. reports sharp pain that happens randomly nothing makes it better or worse Denies burning with urination denies fever denies loss of control of bowel or bladder Neurological Exam Neurological exam: Present alert, oriented X3 and normal gait Medical Decision Making Medical Records Screening: Per USPSTF and CDC recommendations, given the prevalence of disease in our region, it is our hospital?s policy to screen for HIV and viral Hepatitis for all patients aged 18 and over and those with ongoing risk factors. Chuck Inquiry Pt receiving controlled substance: No Chuck was queried for this patient: No Vital Signs: 09/23/24 08:48 Temperature 98.4 F Temperature Source Oral Pulse Rate [Left Brachial] 81 Respiratory Rate 18 Blood Pressure [Left Arm] 141/63 H Blood Pressure Mean [Left Arm] 89 Blood Pressure Source [Left Arm] Automatic Cuff Blood Pressure Position [Left Arm] Sitting 02 Sat by Pulse Oximetry 99 Oxygen Delivery Method Room Air Lab Data Lab results reviewed: Yes I reviewed the patient's lab results. Lab Results 09/23/24 08:46: Urine Color Dark yellow, Urine Appearance Clear, Urine pH 5.5, Ur Specific [place] 1.030, Urine Protein Negative, Urine Glucose (UA) 100, Urine Ketones Negative, Urine Blood Negative, Urine Nitrate Negative, Urine Bilirubin Negative, Urine Urobilinogen 0.2, Ur Leukocyte Esterase Negative Medical Decision Narrative: Discussed xray and discussed transfer to the ED and she declined at this time States that she will return if the pain starts again but hasnt had the pain since 3am Patient was given strict return instructions
[2024-09-23 09:15] VITALS: BP 141/63; PULSE 81; RESP 18; TEMP 36.9; O2SAT 99
== END 2024-09-23 09:17 | disposition home or self-care (01) ==
PROVIDERS: Emergency Provider Nurse Practitioner; PCP Internal Medicine Adolescent Medicine
DX: M54.9 Dorsalgia, unspecified (principal); R11.0 Nausea
CPT/HCPCS: 81003; 99212; G0381

== ENCOUNTER 2024-10-12 08:03 | Outpatient (CLI) | payer OTHER, SELFPAY ==
[2024-10-12 09:04] LABS: Chloride 106 mmol/L (98-107); Potassium 4.5 mmoL/L (3.5-5.1); Sodium 134 mmol/L (136-145)
[2024-10-12 09:39] LABS: Thyroid Stimulating Hormone 1.99 uIU/mL (0.465-4.68)
[2024-10-12 09:51] LABS: 25-OH Vitamin D, Total 26.1 ng/mL (30-100)
[2024-10-12 11:58] LABS: Hemoglobin A1C 7.3 % (4.0-6.0)
[2024-10-12 17:31] LABS: Alanine Aminotransferase 29 U/L (12-78); Albumin/Globulin Ratio 1.8 (1.1-1.8); Alkaline Phosphatase 56 U/L (38-126); Anion Gap 5.5 mEq/L (5-15); Aspartate Amino Transferase 34 U/L (14-36); Bilirubin,Total 0.7 mg/dl (0.2-1.3); Blood Urea Nitrogen 10 mg/dl (7-17); Carbon Dioxide 27 mmol/L (22.0-30.0); Chol/HDL Ratio 5.9 (1-3.5); Cholesterol 136 mg/dl (140-200); Estimated Glomerular Filt Rate 75 ml/min (>60); GFR (African American) 91 ML/MIN (>60); Globulin 2.2 g/dL (1.3-3.2); Glucose 193 mg/dl (74-100); HDL Cholesterol 23 mg/dl (40-60); Total Protein,Serum 6.2 g/dl (6.3-8.2); Triglycerides 237 mg/dl (30-150); VLDL Cholesterol 47 mg/dL (0-40)
[2024-10-12 17:42] LABS: Direct LDL Cholesterol 70.44 mg/dL (100-129)
[2024-10-12 18:22] LABS: Vitamin B12 225 pg/mL (239-931)
== END 2024-10-12 23:59 | disposition home or self-care (01) ==
LOC: LAB 08:04
PROVIDERS: PCP Internal Medicine Adolescent Medicine; Visit Provider Internal Medicine Adolescent Medicine
DX: E03.9 Hypothyroidism, unspecified (principal); Z85.42 Personal history of malignant neoplasm of other parts of uterus; E11.9 Type 2 diabetes mellitus without complications; Z72.0 Tobacco use; Z79.4 Long term (current) use of insulin
CPT/HCPCS: 36415; 80053; 80061; 82306; 82607; 83036; 84443

== ENCOUNTER 2024-10-13 14:35 | Outpatient (CLI) | payer OTHER, SELFPAY ==
--- NOTE | 2024-10-13 14:38 | MM_ITS ---
PROCEDURE INFORMATION: Exam: MG Bilateral Screening 3D Mammography Exam date and time: 10/13/2024 2:32 PM Age: 54 years old Clinical indication: Screening examination TECHNIQUE: Imaging protocol: Bilateral Screening tomosynthesis and 2D mammography including computer-aided detection (CAD) when performed. COMPARISON: No relevant prior studies available. FINDINGS: MAMMOGRAPHY: Breast composition: There are scattered areas of fibroglandular density. Mass: No suspicious masses. Architectural distortion: None. Calcifications: No suspicious calcifications. Asymmetric density: None. Skin thickening: None. Axillary adenopathy: None. IMPRESSION: No mammographic evidence of malignancy. Annual screening is recommended unless otherwise clinically indicated. ASSESSMENT: BI-RADS Category 1: Negative.
== END 2024-10-13 23:59 | disposition home or self-care (01) ==
LOC: RAD 14:36
PROVIDERS: PCP Internal Medicine Adolescent Medicine; Visit Provider Internal Medicine Adolescent Medicine
DX: Z12.31 Encounter for screening mammogram for malignant neoplasm of breast (principal)
CPT/HCPCS: 77063; 77067

== ENCOUNTER 2024-12-17 10:01 | Outpatient (CLI) | payer OTHER, SELFPAY ==
[2024-12-17 19:10] LABS: Coronavirus 19, PCR Not Detected (NotDetected); Human Rhinovirus Not Detected (NotDetected); Influenza A, PCR Not Detected (NotDetected); Influenza B, PCR Not Detected (NotDetected); Respiratory Syncytial Virus Not Detected (NotDetected)
== END 2024-12-17 23:59 | disposition home or self-care (01) ==
LOC: LAB.DROPOF 12-18 10:14
PROVIDERS: PCP Family Medicine; Visit Provider Family Medicine
DX: R05.9 Cough, unspecified (principal); R09.89 Other specified symptoms and signs involving the circulatory and respiratory systems
CPT/HCPCS: 87631

== ENCOUNTER 2024-12-30 11:46 | Outpatient (CLI) | payer OTHER, SELFPAY ==
[2024-12-30 12:31] LABS: Blood Urea Nitrogen 11 mg/dl (7-17); Estimated Glomerular Filt Rate 65 ml/min (>60); GFR (African American) 79 ML/MIN (>60)
== END 2024-12-30 23:59 | disposition home or self-care (01) ==
LOC: LAB 11:48
PROVIDERS: PCP Internal Medicine Adolescent Medicine; Visit Provider Internal Medicine Adolescent Medicine
DX: Z01.812 Encounter for preprocedural laboratory examination (principal)
CPT/HCPCS: 36415; 82565; 84520

== ENCOUNTER 2024-12-31 08:00 | Outpatient (CLI) | payer OTHER, SELFPAY ==
--- NOTE | 2024-12-31 08:01 | CT_ITS ---
FINAL REPORT CLINICAL HISTORY: HX OF NICOTINE SMOKES 1 PK PER DAY X 25 YRS HX OF UTERINE CANCER COMPARISON: 03/21/2023 FINDINGS: CT CHEST LOW DOSE SCREENING HISTORY: Screening exam for lung cancer. 54-year-old female, current smoker, [id number] history DOSE: CTDI vol: 2.90 mGy, DLP: 111.25 mGy*cm TECHNIQUE: Axial CT without IV contrast administration using low dose protocol. This study was performed with techniques to keep radiation doses as low as reasonably achievable, (ALARA). Individualized dose reduction techniques using automated exposure control or adjustment of mA and/or kV according to the patient's size were employed. No acute lung disease is present. There is a 2 mm nodule in the lingula best seen on image #47, which is stable when compared to the prior examination. There is also a 3 mm subpleural lateral right upper lobe nodule best seen on image #34, also stable. No new suspicious nodules are identified. No pleural or pericardial effusion is seen. No adenopathy or mass lesion is present. IMPRESSION: No new suspicious nodules are identified. LUNG RADS CATEGORY 2 RECOMMENDATION: 12 month LDCT follow up Reviewed, Interpreted and Dictated by Taco Yee MD Transcribed by Joy Mcneal Authenticated and [facility]
--- NOTE | 2024-12-31 08:02 | CT_ITS ---
FINAL REPORT TECHNIQUE: Oral and IV contrast enhanced exam This study was performed with techniques to keep radiation doses as low as reasonably achievable, (ALARA). Individualized dose reduction techniques using automated exposure control or adjustment of mA and/or kV according to the patient's size were employed. CLINICAL HISTORY: HX OF UTERINE CANCER 2013, F/U COMPARISON: 10/31/2023 FINDINGS: CT ABDOMEN AND PELVIS WITH CONTRAST: Abdomen: Lung bases are clear. The gallbladder demonstrates cholelithiasis. Liver has an unremarkable CT appearance. The spleen, pancreas and adrenal glands are unremarkable. Kidneys show no mass or obstruction. No bowel obstruction or fluid collection is seen. Pelvis: The uterus has been surgically resected. No pelvic adenopathy or ascites is present. The appendix is normal in appearance. Pelvic bowel loops are unremarkable. No adenopathy is seen. IMPRESSION: No evidence of metastatic disease. Reviewed, Interpreted and Dictated by Taco Yee MD Transcribed by Joy Mcneal Authenticated and [facility]
[2024-12-31] MEDS: BARIUM SULFATE(READI-CAT2);450ML BOTTLE 450 ML PO (08:27)
[2024-12-31] MEDS: IOPAMIDOL-370 (76%);100ML BOTTLE 75 ML IV (08:27)
[2024-12-31] MEDS: SODIUM CHLORIDE 0.9% 10ML SYR (RAD ONLY) 10 ML IV (08:27)
== END 2024-12-31 23:59 | disposition home or self-care (01) ==
LOC: RAD 08:00
PROVIDERS: PCP Internal Medicine Adolescent Medicine; Visit Provider Internal Medicine Adolescent Medicine
DX: Z87.891 Personal history of nicotine dependence (principal); Z85.42 Personal history of malignant neoplasm of other parts of uterus
CPT/HCPCS: 71271; 74177; Q9967

== ENCOUNTER 2025-01-08 12:11 | Outpatient (CLI) | payer OTHER, SELFPAY ==
[2025-01-08 17:59] LABS: Coronavirus 19, PCR Not Detected (NotDetected); Human Rhinovirus Not Detected (NotDetected); Influenza A, PCR Not Detected (NotDetected); Influenza B, PCR Not Detected (NotDetected); Respiratory Syncytial Virus Not Detected (NotDetected)
== END 2025-01-08 23:59 | disposition home or self-care (01) ==
LOC: LAB.DROPOF 01-11 12:16
PROVIDERS: PCP Nurse Practitioner Family; Visit Provider Nurse Practitioner Family
DX: R05.9 Cough, unspecified (principal); J02.9 Acute pharyngitis, unspecified; Z20.822 Contact with and (suspected) exposure to COVID-19
CPT/HCPCS: 87631